=== PATIENT | male | born 1985 | race Caucasian/White ===

== ENCOUNTER → 2020-12-07 10:49 | Outpatient (CLI) | payer OTHER, SELFPAY ==
[2016-07-20 22:34] VITALS: BMI 33.2
[2020-12-07 12:43] LABS: Anion Gap 3 (5-15); BUN 16 mg/dL (7-18); BUN/Creat Ratio 17.7 RATIO (10-20); Calcium,Total 9.1 mg/dL (8.5-10.1); Chloride 106 mmol/L (98-107); Cholesterol 226 mg/dL (200); EST Glomerular Filtration Rate 101 mL/min (>60); Est Glom Filt Rate - Afr Amer 122 mL/min (>60); Glucose 92 mg/dL (74-106); High Density Lipoprotein 38 mg/dL; Sodium Level 139 mmol/L (136-145); Triglycerides 251 mg/dL; Very Low Density Lipoprotein 50 mg/dL (5-40)
== END ==
PROVIDERS: PCP Family Medicine; Referring Provider Family Medicine; Visit Provider Family Medicine
DX: Z00.00 Encounter for general adult medical examination without abnormal findings (principal)
CPT/HCPCS: 36415; 80048; 80061

== ENCOUNTER → 2020-12-27 10:43 | Outpatient (CLI) | payer OTHER, SELFPAY ==
--- NOTE | 2020-12-27 10:00 | VAS_PTH ---
PATIENT: HERBERT ESCAMILLA [facility] U#:[id number] AGE/SX: 39/M ROOM: RE12/27/[address]: Dr. Kadeem Vu MD : 1985 BED: DIS: SPEC #: [id number] RECD: 12/27/20 10:41 STATUS: DIONE REShivani #: [id number] JU: 12/27/20 10:[address]: Kadeem Vu DEPT: SURGICAL PATHOLOGY RECD BY: Fina Nassar ENTERED: 12/27/20 12:49 SP TYPE: VAS OTHR DR: Dr. Keny Calhoun MD Tissues: A - Vas deferens, NOS B - Vas deferens, NOS Procedures: Surgery Specimen Level II HEADER OPERATION: Bilateral partial vasectomy PRE-OP DIAGNOSIS: Sterilization TISSUE SUBMITTED: A - Left vas deferens, B - Right vas deferens MICROSCOPIC DIAGNOSIS A. Left vas deferens, partial vasectomy: Completely transected segment of vas deferens, no pathologic diagnosis. B. Right vas deferens, partial vasectomy: Completely transected segment of vas deferens, no pathologic diagnosis. JAXON:macario 12/28/2020 MICROSCOPIC DESCRIPTION Slides are reviewed. GROSS DESCRIPTION A - Received is one container designated left vas deferens. The specimen consists of a tubular segment of og soft tissue measuring 1 cm in length and 0.4 cm in diameter. The entire specimen is submitted in one cassette. It will be sectioned at the time of embedding. B - Received is one container designated right vas deferens. The specimen consists of a tubular segment of og soft tissue measuring 1.2 cm in length and 0.2 cm in diameter. The entire specimen is submitted in one cassette. It will be sectioned at the time of embedding. / JAXON:macario 12/27/20 TC:4 [facility]: [id number] x2
== END ==
PROVIDERS: PCP Family Medicine; Referring Provider Surgery; Visit Provider Surgery
DX: Z30.2 Encounter for sterilization (principal)
CPT/HCPCS: 88302

== ENCOUNTER → 2021-04-04 16:44 | Outpatient (CLI) | payer OTHER, SELFPAY ==
[2021-04-04 16:47] LABS: Lyme Ab Screen Interpretation REF LAB
[2021-04-04 17:49] LABS: Absolute Lymphocyte Count 2.63 X10^3/uL (0.83-4.51); Absolute Neutrophil Count 3.2 X10^3/uL (2.0-7.7); Basophil# 0.05 X10^3/uL; Basophil% 0.8 % (0-1); Eosinophil# 0.27 X10^3/uL; Eosinophils% 4.1 % (0-5); Hematocrit 48.7 % (40-54); Hemoglobin 16.1 g/dL (13.0-16.5); Lymphocyte # 2.63 X10^3/ul (0.83-4.51); Lymphocyte % 39.5 % (19-41); Mean Corp Hgb Conc 33.1 g/dL (32-36); Mean Corpuscular Hgb 29.7 pg (27.0-32.0); Mean Corpuscular Volume 89.9 fL (80-94); Mean Platelet Vol. 10.4 fl (6.2-12.0); Monocyte# 0.53 X10^3/uL; NRBC Flagged by Analyzer 0 % (0-5); Neutrophil # 3.15 X10^3/uL (2.7-7.7); Neutrophil % 47.1 % (47-70); Platelet Count 216 K/mm3 (150-450); RBC Distribution Width CV 11.7 % (11.6-14.6); RBC Distribution Width SD 38.3 fl (35.1-43.9); Red Blood Count 5.42 M/mm3 (4.6-6.2); White Blood Count 6.7 K/mm3 (4.4-11.0)
[2021-04-04 18:40] LABS: Anion Gap 6 (5-15); BUN 14 mg/dL (7-18); BUN/Creat Ratio 14.9 RATIO (10-20); Calcium,Total 8.9 mg/dL (8.5-10.1); Chloride 103 mmol/L (98-107); Creatinine, Serum 0.94 mg/dL (0.70-1.30); EST Glomerular Filtration Rate 96 mL/min (>60); Est Glom Filt Rate - Afr Amer 116 mL/min (>60); Glucose 103 mg/dL (74-106); Potassium 3.6 mmol/L (3.5-5.1); Sodium Level 136 mmol/L (136-145)
[2021-04-07 11:55] LABS: Lyme Scn Total Ab w/Rflx <0.91 ISR (0.00-0.90)
== END ==
PROVIDERS: PCP Family Medicine; Referring Provider Family Medicine; Visit Provider Family Medicine
DX: R53.83 Other fatigue (principal); W57.XXXA Bitten or stung by nonvenomous insect and other nonvenomous arthropods, initial encounter
CPT/HCPCS: 36415; 80048; 84403; 84443; 85025; 86618

== ENCOUNTER → 2021-04-13 13:33 | Outpatient (CLI) | payer OTHER, SELFPAY | PROVIDERS: PCP Family Medicine; Referring Provider Family Medicine; Visit Provider Family Medicine | DX: R79.89 Other specified abnormal findings of blood chemistry (principal) | CPT/HCPCS: 36415; 84403 ==

== ENCOUNTER → 2021-08-06 14:03 | Outpatient (CLI) | payer BC, SELFPAY ==
[2021-08-07 12:19] LABS: Semen Analysis Post Vas ABSENT
== END ==
PROVIDERS: PCP Family Medicine; Visit Provider Surgery
DX: Z30.2 Encounter for sterilization (principal)
CPT/HCPCS: 89321

== ENCOUNTER → 2021-09-20 16:28 | Outpatient (CLI) | payer BC, SELFPAY | PROVIDERS: PCP Family Medicine; Visit Provider Family Medicine | DX: Z20.828 Contact with and (suspected) exposure to other viral communicable diseases (principal) | CPT/HCPCS: 87635; U0003; U0005 ==

== ENCOUNTER 2021-10-05 11:23 | Outpatient (CLI) | payer BC, SELFPAY ==
[2021-10-05 15:26] LABS: Absolute Lymphocyte Count 2.33 X10^3/uL (0.83-4.51); Absolute Neutrophil Count 5.7 X10^3/uL (2.0-7.7); Basophil# 0.05 X10^3/uL; Basophil% 0.6 % (0-1); Eosinophil# 0.12 X10^3/uL; Eosinophils% 1.4 % (0-5); Hematocrit 48.9 % (40-54); Hemoglobin 16.2 g/dL (13.0-16.5); Lymphocyte # 2.33 X10^3/ul (0.83-4.51); Lymphocyte % 26.4 % (19-41); Mean Corp Hgb Conc 33.1 g/dL (32-36); Mean Corpuscular Hgb 29.6 pg (27.0-32.0); Mean Corpuscular Volume 89.2 fL (80-94); Mean Platelet Vol. 10.1 fl (6.2-12.0); Monocyte# 0.62 X10^3/uL; NRBC Flagged by Analyzer 0 % (0-5); Neutrophil # 5.68 X10^3/uL (2.7-7.7); Neutrophil % 64.4 % (47-70); Platelet Count 280 K/mm3 (150-450); RBC Distribution Width CV 11.9 % (11.6-14.6); RBC Distribution Width SD 38.4 fl (35.1-43.9); Red Blood Count 5.48 M/mm3 (4.6-6.2); White Blood Count 8.8 K/mm3 (4.4-11.0)
[2021-10-05 15:51] LABS: Anion Gap 6 (5-15); BUN 14 mg/dL (7-18); BUN/Creat Ratio 16.5 RATIO (10-20); Calcium,Total 9.7 mg/dL (8.5-10.1); Chloride 102 mmol/L (98-107); Creatinine, Serum 0.85 mg/dL (0.70-1.30); EST Glomerular Filtration Rate 107 mL/min (>60); Est Glom Filt Rate - Afr Amer 130 mL/min (>60); Glucose 93 mg/dL (74-106); Potassium 4.3 mmol/L (3.5-5.1); Sodium Level 137 mmol/L (136-145); Thyroid Stim Hormone (TSH) 1.31 uIU/mL (0.358-3.74)
== END 2021-10-05 23:59 | disposition short-term general hospital (02) ==
LOC: MTLAB 11:24
PROVIDERS: PCP Family Medicine; Referring Provider Family Medicine; Visit Provider Family Medicine
DX: R79.89 Other specified abnormal findings of blood chemistry (principal); J34.89 Other specified disorders of nose and nasal sinuses; R53.83 Other fatigue
CPT/HCPCS: 36415; 80048; 84403; 84443; 85025

== ENCOUNTER 2021-10-24 11:47 | Outpatient (CLI) | payer BC, SELFPAY ==
--- NOTE | 2021-10-24 11:50 | RAD_ITS ---
STUDY: X-RAY CHEST REASON FOR EXAM: Male, 36 years old. Persistent cough TECHNIQUE: PA and lateral views of the chest. COMPARISON: None. FINDINGS: The lungs are clear and expanded. There is no demonstrated pleural abnormality. Normal size heart. Normal mediastinum and yunier. Normal visualized pulmonary arteries. Normal visualized aortic arch and descending thoracic aorta. Normal visualized thoracic spine. Normal visualized ribs, clavicles, and shoulders. There is no demonstrated abnormality of the visualized soft tissue structures of the upper abdomen. RAD/Chest PA and Lateral IMPRESSION: Normal x-ray examination of the chest. Electronically Signed: Archie Morton MD at 16:26 EST ,
== END 2021-10-24 23:59 | disposition short-term general hospital (02) ==
LOC: MTRAD 11:49
PROVIDERS: PCP Family Medicine; Referring Provider Family Medicine; Visit Provider Family Medicine
DX: Z87.09 Personal history of other diseases of the respiratory system (principal)
CPT/HCPCS: 71046

== ENCOUNTER → 2022-02-12 | Outpatient (CLI) | payer BC, SELFPAY | END | disposition home or self-care (01) | LOC: MFPLAB 12:09 | PROVIDERS: PCP Family Medicine; Referring Provider Family Medicine; Visit Provider Family Medicine | DX: R79.89 Other specified abnormal findings of blood chemistry (principal) | CPT/HCPCS: 36415; 84403 ==

== ENCOUNTER → 2022-03-08 | Outpatient (CLI) | payer BC, SELFPAY ==
[2022-03-08 12:20] LABS: AST(SGOT) 30 U/L (15-37); Alanine Aminotransfer ALT/SGPT 44 U/L (16-61); Albumin, Serum 3.9 g/dL (3.2-5.0); Alkaline Phosphatase 72 U/L (45-117); Bilirubin, Direct 0.17 mg/dL (0.00-0.30); Cholesterol 211 mg/dL (200); Globulin 3.7 g/dL (2.2-4.2); High Density Lipoprotein 36 mg/dL; Protein, Total 7.6 g/dL (6.4-8.2); Triglycerides 234 mg/dL; Very Low Density Lipoprotein 47 mg/dL (5-40)
== END | disposition home or self-care (01) ==
LOC: MTLAB 10:51
PROVIDERS: PCP Family Medicine; Referring Provider Dermatology; Visit Provider Dermatology
DX: L70.0 Acne vulgaris (principal); Z79.899 Other long term (current) drug therapy
CPT/HCPCS: 36415; 80061; 80076

== ENCOUNTER → 2022-05-23 | Outpatient (CLI) | payer BC, SELFPAY ==
[2022-05-23 12:36] LABS: Thyroid Stim Hormone (TSH) 2.45 uIU/mL (0.358-3.74)
== END | disposition home or self-care (01) ==
LOC: MFPLAB 10:00
PROVIDERS: PCP Family Medicine; Visit Provider Family Medicine
DX: R79.89 Other specified abnormal findings of blood chemistry (principal); F41.9 Anxiety disorder, unspecified
CPT/HCPCS: 36415; 84403; 84443

== ENCOUNTER → 2022-12-23 | Outpatient (CLI) | payer BC, SELFPAY | END | disposition home or self-care (01) | LOC: MFPLAB 10:57 | PROVIDERS: PCP Family Medicine; Visit Provider Family Medicine | DX: R79.89 Other specified abnormal findings of blood chemistry (principal) | CPT/HCPCS: 36415; 84403 ==

== ENCOUNTER → 2023-07-09 | Outpatient (CLI) | payer BC, SELFPAY ==
[2023-07-09 17:38] LABS: Absolute Lymphocyte Count 2.26 X10^3/uL (0.83-4.51); Absolute Neutrophil Count 4.6 X10^3/uL (2.0-7.7); Basophil% 1.2 % (0-1); Eosinophil# 0.52 X10^3/uL; Eosinophils% 6.3 % (0-5); Hemoglobin 18.7 g/dL (13.0-16.5); Lymphocyte # 2.26 X10^3/ul (0.83-4.51); Lymphocyte % 27.5 % (19-41); Mean Corp Hgb Conc 32.4 g/dL (32-36); Mean Corpuscular Volume 95.7 fL (80-94); Mean Platelet Vol. 10.6 fl (6.2-12.0); Monocyte% 8.5 % (0-10); NRBC Flagged by Analyzer 0 % (0-5); Neutrophil # 4.58 X10^3/uL (2.7-7.7); Neutrophil % 55.9 % (47-70); Platelet Count 245 K/mm3 (150-450); RBC Distribution Width CV 11.9 % (11.6-14.6); RBC Distribution Width SD 41.9 fl (35.1-43.9); Red Blood Count 6.03 M/mm3 (4.6-6.2); White Blood Count 8.2 K/mm3 (4.4-11.0)
[2023-07-09 18:06] LABS: Hematocrit 57.7 % (40-54)
[2023-07-09 18:18] LABS: PSA,Total- Diagnostic 0.63 ng/mL (0.0-4.0)
[2023-07-11 10:47] LABS: Pathologist Review Reviewed
== END | disposition home or self-care (01) ==
LOC: MFPLAB 15:14
PROVIDERS: PCP Family Medicine; Visit Provider Family Medicine
DX: R79.89 Other specified abnormal findings of blood chemistry (principal)
CPT/HCPCS: 36415; 84153; 84403; 85025

== ENCOUNTER → 2023-08-11 | Outpatient (CLI) | payer BC, SELFPAY ==
[2023-08-11 15:24] LABS: Absolute Lymphocyte Count 2.75 X10^3/uL (0.83-4.51); Absolute Neutrophil Count 3.2 X10^3/uL (2.0-7.7); Basophil# 0.05 X10^3/uL; Basophil% 0.7 % (0-1); Eosinophil# 0.32 X10^3/uL; Eosinophils% 4.7 % (0-5); Hematocrit 54.5 % (40-54); Hemoglobin 18.2 g/dL (13.0-16.5); Lymphocyte # 2.75 X10^3/ul (0.83-4.51); Lymphocyte % 40.2 % (19-41); Mean Corp Hgb Conc 33.4 g/dL (32-36); Mean Corpuscular Hgb 31.5 pg (27.0-32.0); Mean Corpuscular Volume 94.3 fL (80-94); Mean Platelet Vol. 10.6 fl (6.2-12.0); Monocyte# 0.55 X10^3/uL; NRBC Flagged by Analyzer 0 % (0-5); Neutrophil # 3.15 X10^3/uL (2.7-7.7); Neutrophil % 46.1 % (47-70); Platelet Count 239 K/mm3 (150-450); RBC Distribution Width CV 11.4 % (11.6-14.6); RBC Distribution Width SD 39.3 fl (35.1-43.9); Red Blood Count 5.78 M/mm3 (4.6-6.2); White Blood Count 6.8 K/mm3 (4.4-11.0)
[2023-08-13 14:58] LABS: Pathologist Review Reviewed
== END | disposition home or self-care (01) ==
LOC: MFPLAB 11:38
PROVIDERS: PCP Family Medicine; Visit Provider Family Medicine
DX: R79.89 Other specified abnormal findings of blood chemistry (principal)
CPT/HCPCS: 36415; 85025

== ENCOUNTER → 2023-09-10 | Outpatient (CLI) | payer BC, SELFPAY ==
[2023-09-10 15:33] LABS: Absolute Lymphocyte Count 2.53 X10^3/uL (0.83-4.51); Absolute Neutrophil Count 3.4 X10^3/uL (2.0-7.7); Basophil# 0.04 X10^3/uL; Basophil% 0.6 % (0-1); Eosinophils% 4.5 % (0-5); Hematocrit 49.7 % (40-54); Hemoglobin 16.8 g/dL (13.0-16.5); Lymphocyte # 2.53 X10^3/ul (0.83-4.51); Lymphocyte % 37.8 % (19-41); Mean Corp Hgb Conc 33.8 g/dL (32-36); Mean Corpuscular Hgb 31.2 pg (27.0-32.0); Mean Corpuscular Volume 92.4 fL (80-94); Mean Platelet Vol. 10.5 fl (6.2-12.0); Monocyte# 0.41 X10^3/uL; Monocyte% 6.1 % (0-10); NRBC Flagged by Analyzer 0 % (0-5); Neutrophil # 3.39 X10^3/uL (2.7-7.7); Neutrophil % 50.6 % (47-70); Platelet Count 246 K/mm3 (150-450); RBC Distribution Width CV 11.7 % (11.6-14.6); RBC Distribution Width SD 39.6 fl (35.1-43.9); Red Blood Count 5.38 M/mm3 (4.6-6.2); White Blood Count 6.7 K/mm3 (4.4-11.0)
== END | disposition home or self-care (01) ==
LOC: MFPLAB 13:42
PROVIDERS: PCP Family Medicine; Visit Provider Family Medicine
DX: Z51.81 Encounter for therapeutic drug level monitoring (principal)
CPT/HCPCS: 36415; 85025

== ENCOUNTER → 2024-01-14 | Outpatient (CLI) | payer BC, SELFPAY ==
[2024-01-14 17:40] LABS: Absolute Neutrophil Count 2.9 X10^3/uL (2.0-7.7); Basophil# 0.04 X10^3/uL; Basophil% 0.7 % (0-1); Eosinophil# 0.18 X10^3/uL; Eosinophils% 3.1 % (0-5); Hemoglobin 16.4 g/dL (13.0-16.5); Lymphocyte % 40.7 % (19-41); Mean Corp Hgb Conc 34.2 g/dL (32-36); Mean Corpuscular Hgb 31.8 pg (27.0-32.0); Mean Corpuscular Volume 93.2 fL (80-94); Mean Platelet Vol. 10.4 fl (6.2-12.0); Monocyte# 0.32 X10^3/uL; Monocyte% 5.4 % (0-10); NRBC Flagged by Analyzer 0 % (0-5); Neutrophil # 2.93 X10^3/uL (2.7-7.7); Neutrophil % 49.8 % (47-70); Platelet Count 222 K/mm3 (150-450); RBC Distribution Width CV 11.4 % (11.6-14.6); RBC Distribution Width SD 39.2 fl (35.1-43.9); Red Blood Count 5.15 M/mm3 (4.6-6.2); White Blood Count 5.9 K/mm3 (4.4-11.0)
== END | disposition home or self-care (01) ==
LOC: MFPLAB 14:40
PROVIDERS: PCP Family Medicine; Visit Provider Family Medicine
DX: R79.89 Other specified abnormal findings of blood chemistry (principal)
CPT/HCPCS: 36415; 84403; 85025

== ENCOUNTER → 2024-07-19 | Outpatient (CLI) | payer BC, SELFPAY ==
[2024-07-19 18:18] LABS: Hematocrit 51.4 % (40-54); Hemoglobin 17.4 g/dL (13.0-16.5); Mean Corp Hgb Conc 33.9 g/dL (32-36); Mean Corpuscular Hgb 31.4 pg (27.0-32.0); Mean Corpuscular Volume 92.6 fL (80-94); Mean Platelet Vol. 10.6 fl (6.2-12.0); Platelet Count 221 K/mm3 (150-450); RBC Distribution Width CV 12.1 % (11.6-14.6); Red Blood Count 5.55 M/mm3 (4.6-6.2); White Blood Count 6.9 K/mm3 (4.4-11.0)
== END | disposition home or self-care (01) ==
LOC: MFPLAB 14:25
PROVIDERS: PCP Family Medicine; Referring Provider Family Medicine; Visit Provider Family Medicine
DX: R79.89 Other specified abnormal findings of blood chemistry (principal)
CPT/HCPCS: 36415; 84403; 85027

== ENCOUNTER → 2024-10-18 | Outpatient (CLI) | payer BC, SELFPAY ==
[2024-10-18 17:48] LABS: Absolute Lymphocyte Count 1.99 X10^3/uL (0.83-4.51); Absolute Neutrophil Count 4.1 X10^3/uL (2.0-7.7); Basophil# 0.03 X10^3/uL; Basophil% 0.4 % (0-1); Eosinophil# 0.13 X10^3/uL; Eosinophils% 1.9 % (0-5); Hematocrit 50.1 % (40-54); Hemoglobin 16.1 g/dL (13.0-16.5); Lymphocyte # 1.99 X10^3/ul (0.83-4.51); Lymphocyte % 29.6 % (19-41); Mean Corp Hgb Conc 32.1 g/dL (32-36); Mean Corpuscular Hgb 30.4 pg (27.0-32.0); Mean Corpuscular Volume 94.7 fL (80-94); Mean Platelet Vol. 10.6 fl (6.2-12.0); Monocyte% 7.4 % (0-10); NRBC Flagged by Analyzer 0 % (0-5); Neutrophil # 4.06 X10^3/uL (2.7-7.7); Neutrophil % 60.4 % (47-70); Platelet Count 232 K/mm3 (150-450); RBC Distribution Width CV 11.7 % (11.6-14.6); RBC Distribution Width SD 40.9 fl (35.1-43.9); Red Blood Count 5.29 M/mm3 (4.6-6.2); White Blood Count 6.7 K/mm3 (4.4-11.0)
== END | disposition home or self-care (01) ==
LOC: MFPLAB 14:13
PROVIDERS: PCP Family Medicine; Referring Provider Family Medicine; Visit Provider Family Medicine
DX: R79.89 Other specified abnormal findings of blood chemistry (principal)
CPT/HCPCS: 36415; 84403; 85025

== ENCOUNTER → 2025-02-22 | Outpatient (CLI) | payer BC, SELFPAY ==
[2025-02-22 12:21] LABS: Absolute Neutrophil Count 4.4 X10^3/uL (2.0-7.7); Basophil# 0.05 X10^3/uL; Basophil% 0.7 % (0-1); Eosinophils% 4.3 % (0-5); Hematocrit 50.5 % (40-54); Lymphocyte % 25.6 % (19-41); Mean Corp Hgb Conc 33.7 g/dL (32-36); Mean Corpuscular Hgb 31.3 pg (27.0-32.0); Mean Corpuscular Volume 92.8 fL (80-94); Mean Platelet Vol. 10.1 fl (6.2-12.0); Monocyte# 0.46 X10^3/uL; Monocyte% 6.6 % (0-10); NRBC Flagged by Analyzer 0 % (0-5); Neutrophil # 4.37 X10^3/uL (2.7-7.7); Neutrophil % 62.2 % (47-70); Platelet Count 212 K/mm3 (150-450); RBC Distribution Width CV 11.9 % (11.6-14.6); RBC Distribution Width SD 40.8 fl (35.1-43.9); Red Blood Count 5.44 M/mm3 (4.6-6.2)
[2025-02-22 13:00] LABS: Anion Gap 12 (5-15); BUN 12 mg/dL (4-19); BUN/Creat Ratio 13.4 RATIO (10-20); Calcium,Total 9.4 mg/dL (7.6-11.0); Carbon Dioxide 25.1 mmol/L (21.0-32.0); Chloride 100 mmol/L (98-108); Cholesterol 214 mg/dL (<=200); Creatinine, Serum 0.89 mg/dL (0.70-1.20); EST Glomerular Filtration Rate 110 (>60); Glucose 87 mg/dL (70-99); High Density Lipoprotein 46 mg/dL; Low Density Lipoprotein Calc. 137 mg/dL; Potassium 3.9 mmol/L (3.3-5.1); Sodium Level 137 mmol/L (133-145); Triglycerides 152 mg/dL; Very Low Density Lipoprotein 30 mg/dL (5-40); cholesterol:hdl ratio screen 4.62
== END | disposition home or self-care (01) ==
LOC: MFPLAB 11:23
PROVIDERS: PCP Family Medicine; Referring Provider Family Medicine; Visit Provider Family Medicine
DX: Z00.00 Encounter for general adult medical examination without abnormal findings (principal); E29.1 Testicular hypofunction
CPT/HCPCS: 36415; 80048; 80061; 84403; 85025

== ENCOUNTER → 2025-06-24 | Outpatient (CLI) | payer BC, SELFPAY ==
--- OUTSIDE RECORDS SUMMARY | 2025-06-24 10:04 | XMS RPT_ITS | CCD ---
Author Organization [facility] Care Team Providers Care Manual Arts Teacher Name Role Phone Unavailable Primary Care Provider Wendy Calhoun MD, Dr. Bustillo Primary Care Provider Lj MCCAULEY, Dr. Bustillo Attending Provider Lj MCCAULEY, Dr. Bustillo Referring Provider [phone] Keny Calhoun Primary Care Unavailable Keny Calhoun Attending Unavailable Lj, Keny Referring Unavailable Lj, Keny Attending Unavailable Lj, Keny Referring Unavailable Keny Calhoun Primary Care Unavailable Lj, Keny Attending Unavailable Lj, Keny Referring Unavailable Lj, Keny Primary Care Unavailable Allergies Allergy Classification Reported Allergen(s) Allergy Type Date of Onset Reaction(s) Facility (10 sources) Penicillins; Translations: [Penicillins] Allergy to substance 01-09-2021 [facility] Medications Current Medications Medication Drug Class(es) Dates Sig (Normalized) Sig (Original) allopurinol 100 mg oral tablet (9 sources) Xanthine Oxidase Inhibitor Start: 07-20-2016 take 1 tablet by mouth once daily at mealtime Allopurinol 100 MG tablet Active 100 mg PO DAILY WITH MEALS July 20, 2016 12:00am cetirizine hydrochloride 10 mg oral tablet (9 sources) Histamine-1 Receptor Antagonist Start: 07-20-2016 take 1 tablet by mouth at bedtime Cetirizine 10 MG tablet Active 10 mg PO AT BEDTIME July 20, 2016 12:00am multivitamin,tx-iron -minerals (8 sources) Start: 12-13-2020 take 1 tablet by mouth once daily multivitamin,tx-i chayo-minerals Active 1 TABLET PO DAILY December 13, 2020 3:02pm Start: 12-13-2020 take 1 tablet by park th once daily multivitamin,wk-jgcq-jcpiuvuo Active 1 T ABLET PO DAILY December 12, 2020 11:00pm Start: 12-13-2020 take 1 tablet by park th once daily multivitamin,fo-iqef-jhrmzreq Active 1 T ABLET PO DAILY December 13, 2020 12:00am Multivitamin,Au-Edhq-Bykgkos s (Complete Multivitamin) tablet (1 source) Start: 12-13-2020 Multivitamin,Uu-Eucs-Dzicnmw s (Complete Multivitamin) tablet Active 1 {tbl} PO DAILY December 13, 2020 12:00am Completed/Discontinued Medications Medication Drug Class(es) Dates Sig (Normalized) Sig (Original) acetaminophen 300 mg / codeine phosphate 15 mg oral tablet (9 sources) Opioid Agonist Start: 12-27-2020 End: 01-01-2021 Acetaminophen-Codei ne 300-15 mg tablet Discontinued 1 {tbl} PO EVERY 6 HOURS as needed for pain December 27, 2020 12:00am January 01, 2021 9:11am Start: 12-27-2020 End: 01-01-2021 take 1 tablet by mouth every six hours Acetaminophen-Codeine Discontinued 1 TABLET PO EVERY 6 HOURS December 27, 2020 12:00am January 01, 2021 9:11am LORazepam 2 mg oral tablet (9 sources) Benzodiazepine Start: 12-13-2020 End: 01-05-2021 Lorazepam (Ativan) 2 mg tablet Discontinued 2 mg PO As Directed as needed for sedation December 13, 2020 12:00am January 05, 2021 2:18pm Take 1 tablet by mouth 2 hrs before your procedure oxyCODONE hydrochloride 5 mg oral tablet (18 sources) Opioid Agonist Start: 01-01-2021 End: 01-05-2021 take 5-10 mg by mouth three times daily as needed for pain Oxycodone 5 mg tablet Discontinued 5 - 10 mg PO THREE TIMES A DAY as needed for pain January 01, 2021 January 05, 2021 2:26pm Problems Active Problems Problem Classification Problem Date Documented Da te Episodic/Chronic Nonspecific chest pain (9 sources) Chest pain; Translations: [Chest pain, unspecified] 07-20-2016 Episodic Past or Other Problems Problem Classification Problem Date Documented Da te Episodic/Chronic Other screening for suspected conditions (not mental disorders or infectious disease) (1 source) Other specified abnormal findings of blood chemistry; Translations: [Other specified abnormal findings of blood chemistry] Onset: 11-05-2024 Episodic Results Test Name Value Interpretation Reference Range Facility Absolute lymphocyte countOrd ered By: Keny Calhoun on 02-22-2025 Lymphocytes Auto (Unsp spec) [#/Vol] 1.80 10*3/uL 0.83-4.51 [facility] Absolute neutrophil countOrd ered By: Keny Calhoun on 02-22-2025 Neutrophils (Bld) [#/Vol] 4.4 10*3/uL 2.0-7.7 [facility] Anion gap in Serum or Plasma Ordered By: Keny Calhoun on 02-22-2025 Anion gap [Moles/Vol] 12 mmol/L 02-03 [facility] Automated lymphocyte count a s percentage of total leukocytesOrdered By: Keny Calhoun on 02-22-2025 Lymphocytes/100 WBC Auto (Unsp spec) 25.6 % [facility] BUN/creatinine ratioOrdered By: Keny Calhoun on 02-22-2025 Urea nitrogen/Creatinine [Mass ratio] 13.4 mg/mg - [facility] Basic Metabolic Profile (BMP )on 02-22-2025 BUN/CRE 13.4 RATIO Normal 07-11 [facility] Comment on above: Performed By: #### L 509.3001, L500.2500, L100.0100, L500.4100 #### [facility] [address] [place], [address] GAP 12 Normal 02-03 [facility] Comment on above: Performed By: #### L 509.3001, L500.2500, L100.0100, L500.4100 #### [facility] [address] [place], [address] Potassium [Moles/Vol] 3.9 mmol/L Normal 3.3-5.1 [facility] Comment on above: Performed By: #### L 509.3001, L500.2500, L100.0100, L500.4100 #### [facility] [address] [place], [address] Basophil percentageOrdered B y: Keny Calhoun on 02-22-2025 Basophils/100 WBC (Bld) 0.7 % 0-[address] [facility] CBC W/Diff, Automatedon Absolute Lymph 1.80 X10 3/uL Normal 0.83-4.51 [facility] Comment on above: Performed By: #### L 509.3001, L500.2500, L100.0100, L500.4100 #### [facility] [address] [place], [address] Absolute Neut 4.4 X10 3/uL Normal 2.0-7.7 [facility] Comment on above: Performed By: #### L 509.3001, L500.2500, L100.0100, L500.4100 #### [facility] [address] [place], [address] Basophils/100 WBC (Bld) 0.7 % Normal 0-[address] [facility] Comment on above: Performed By: #### L 509.3001, L500.2500, L100.0100, L500.4100 #### [facility] [address] [place], [address] Eosinophils/100 WBC (Bld) 4.3 % Normal 0-5 [facility] Comment on above: Performed By: #### L 509.3001, L500.2500, L100.0100, L500.4100 #### [facility] [address] [place], [address] Erythrocyte distribution width (RBC) [Ratio] 11.9 % Normal 11.6-14.6 [facility] Comment on above: Performed By: #### L 509.3001, L500.2500, L100.0100, L500.4100 #### [facility] [address] [place], [address] Hematocrit (Bld) [Volume fraction] 50.5 % Normal 40-54 [facility] Comment on above: Performed By: #### L 509.3001, L500.2500, L100.0100, L500.4100 #### [facility] [address] [place], [address] Hemoglobin (Bld) [Mass/Vol] 17.0 g/dL High 13.0-16.5 [facility] Comment on above: Performed By: #### L 509.3001, L500.2500, L100.0100, L500.4100 #### [facility] [address] [place], [address] IG% 0.600 Normal 0.0-0.9 [facility] Comment on above: Result Comment: IG% - Immature Granulocytes (promyelocytes, myelocytes and metamyelocytes) > 1% indicates that a LEFT SHIFT is Present. Performed By: #### L 509.3001, L500.2500, L100.0100, L500.4100 #### [facility] [address] [place], [address] Lymphocytes/100 WBC (Bld) 25.6 % Normal 19-41 [facility] Comment on above: Performed By: #### L 509.3001, L500.2500, L100.0100, L500.4100 #### [facility] [address] [place], [address] MCH (RBC) [Entitic mass] 31.3 pg Normal 27.0-32.0 [facility] Comment on above: Performed By: #### L 509.3001, L500.2500, L100.0100, L500.4100 #### [facility] [address] [place], [address] MCHC (RBC) [Mass/Vol] 33.7 g/dL Normal 32-36 [facility] Comment on above: Performed By: #### L 509.3001, L500.2500, L100.0100, L500.4100 #### [facility] [address] [place], [address] MCV (RBC) [Entitic vol] 92.8 fL Normal 80-[address] [facility] Comment on above: Performed By: #### L 509.3001, L500.2500, L100.0100, L500.4100 #### [facility] [address] [place], [address] Monocytes/100 WBC (Bld) 6.6 % Normal 0-[address] [facility] Comment on above: Performed By: #### L 509.3001, L500.2500, L100.0100, L500.4100 #### [facility] [address] [place], [address] Neutrophils/100 WBC (Bld) 62.2 % Normal 47-70 [facility] Comment on above: Performed By: #### L 509.3001, L500.2500, L100.0100, L500.4100 #### [facility] [address] [place], [address] Nucleated RBC (Bld) [#/Vol] 0 10*3/uL Normal 0-5 [facility] Comment on above: Performed By: #### L 509.3001, L500.2500, L100.0100, L500.4100 #### [facility] [address] [place], [address] Platelet mean volume (Bld) [Entitic vol] 10.1 fL Normal 6.2-12.0 [facility] Comment on above: Performed By: #### L 509.3001, L500.2500, L100.0100, L500.4100 #### [facility] [address] [place], [address] Platelets (Bld) [#/Vol] 212 10*3/uL Normal 150-450 [facility] Comment on above: Performed By: #### L 509.3001, L500.2500, L100.0100, L500.4100 #### [facility] [address] [place], [address] RBC (Bld) [#/Vol] 5.44 10*6/uL Normal 4.6-6.2 [facility] Comment on above: Performed By: #### L 509.3001, L500.2500, L100.0100, L500.4100 #### [facility] [address] [place], [address] RDW SD 40.8 fl Normal 35.1-43.9 [facility] Comment on above: Performed By: #### L 509.3001, L500.2500, L100.0100, L500.4100 #### [facility] [address] [place], [address] WBC (Bld) [#/Vol] 7.0 10*3/uL Normal 4.4-11.0 [facility] Comment on above: Performed By: #### L 509.3001, L500.2500, L100.0100, L500.4100 #### [facility] [address] [place], [address] Calculated very low density lipoprotein (VLDL) cholesterol measurementOrdered By: Keny Calhoun on 02-22-2025 Calculated very low density lipoprotein (VLDL) cholesterol measurement 30 mg/dL 5-40 [facility] Carbon dioxide, total [Moles /volume] in Central venous bloodOrdered By: Keny Calhoun on 02-22-2025 CO2 [Moles/Vol] 25.1 mmol/L Normal 21.0-32.0 [facility] Comment on above: Performed By: #### L 509.3001, L500.2500, L100.0100, L500.4100 #### [facility] [address] [place], [address] Chloride assayOrdered By: Carl Calhoun on 02-22-2025 Chloride [Moles/Vol] 100 mmol/L Normal 98-108 [facility] Comment on above: Performed By: #### L 509.3001, L500.2500, L100.0100, L500.4100 #### [facility] [address] [place], [place], [address] Eosinophil percentageOrdered By: Keny Calhoun on 02-22-2025 Eosinophils/100 WBC (Bld) 4.3 % 0-5 [facility] Erythrocyte distribution wid th ratioOrdered By: Keny Calhoun on 02-22-2025 Erythrocyte distribution width (RBC) [Ratio] 11.9 % 11.6-14.6 [facility] Erythrocyte distribution wid th standard deviationOrdered By: Keny Calhoun on 02-22-2025 Erythrocyte distribution width (RBC) [Ratio] 40.8 fl 35.1-43.9 [facility] Glomerular filtration rate ( GFR) estimation/1.73 sq m using serum, plasma, or whole bOrdered By: Keny Calhoun on 02-22-2025 GFR/1.73 sq M.predicted among non-blacks MDRD (S/P/Bld) [Vol rate/Area] 110 mL/min/{1.73_m2} Normal >60 [facility] Comment on above: mL/min/1.73m2 CKD-EP I Creatinine Equation (2020) Result Comment: mL/m in/1.73m2 CKD-EPI Creatinine Equation (2020) Performed By: #### L 509.3001, L500.2500, L100.0100, L500.4100 #### [facility] [address] [place], [place], [id number] Hematocrit Auto (Bld) [Volum e fraction]Ordered By: Keny Calhoun on 02-22-2025 Hematocrit (Bld) [Volume fraction] 50.5 % 40-54 [facility] Hemoglobin measurementOrdere d By: Keny Calhoun on 02-22-2025 Hemoglobin (Bld) [Mass/Vol] 17.0 g/dL High 13.0-16.5 [facility] Immature granulocytes/100 WB C Auto (Bld)Ordered By: Keny Calhoun on 02-22-2025 Immature granulocytes/100 WBC (Bld) 0.600 % 0.0-0.9 [facility] Comment on above: IG% - Immature Granu locytes (promyelocytes, myelocytes and metamyelocytes) > 1% indicates that a LEFT SHIFT is Present. L509.3001Ordered By: Keny dejesus on 02-22-2025 Testosterone [Mass/Vol] 320.00 ng/dL Normal 300-890 [facility] Comment on above: Performed By: #### L 509.3001, L500.2500, L100.0100, L500.4100 #### [facility] [address] [place], [address] LDL calc ser/plasOrdered By: Keny Calhoun on 02-22-2025 Cholesterol in LDL [Mass/Vol] 137 mg/dL Normal [facility] Comment on above: Lfzlxnxwub=897-504 m g/dL & Higher Pcow=990 mg/dL or greater Result Comment: Bord fqnova=382-414 mg/dL Higher Iifb=868 mg/dL or greater Performed By: #### L 509.3001, L500.2500, L100.0100, L500.4100 #### [facility] [address] [place], [address] Lipid Profileon 02-22-2025 CHOL:HDL 4.62 Normal [facility] Comment on above: Performed By: #### L 509.3001, L500.2500, L100.0100, L500.4100 #### [facility] [address] [place], [address] Cholesterol in VLDL [Mass/Vol] 30 mg/dL Normal 5-40 [facility] Comment on above: Performed By: #### L 509.3001, L500.2500, L100.0100, L500.4100 #### [facility] [address] [place], [address] MCV (mean corpuscular volume ) determinationOrdered By: Keny Calhoun on 02-22-2025 MCV (RBC) [Entitic vol] 92.8 fL 80-[address] [facility] Mean corpuscular hemoglobin (MCH) determinationOrdered By: Keny Calhoun on 02-22-2025 MCH (RBC) [Entitic mass] 31.3 pg 27.0-32.0 [facility] Mean corpuscular hemoglobin concentration (MCHC) determinationOrdered By: Keny Calhoun on 02-22-2025 MCHC (RBC) [Mass/Vol] 33.7 g/dL 32-36 [facility] Mean platelet volume determi nationOrdered By: Keny Calhoun on 02-22-2025 Platelet mean volume (Bld) [Entitic vol] 10.1 fL 6.2-12.0 [facility] Monocyte percentageOrdered B y: Keny Calhoun on 02-22-2025 Monocytes/100 WBC (Bld) 6.6 % 0-[address] [facility] Neutrophil percentageOrdered By: Keny Calhoun on 02-22-2025 Neutrophils/100 WBC (Bld) 62.2 % 47-70 [facility] Nucleated red blood cell per centageOrdered By: Keny Calhoun on 02-22-2025 Nucleated RBC/100 WBC (Bld) [Ratio] 0 % 0-5 [facility] Platelet countOrdered By: Carl Calhoun on 02-22-2025 Platelets (Bld) [#/Vol] 212 10*3/uL 150-450 [facility] Potassium measurement (mass/ volume)Ordered By: Keny Calhoun on 02-22-2025 Potassium (Unsp spec) [Mass/Vol] 3.9 mmol/L 3.3-5.1 [facility] RBC Auto (Bld) [#/Vol]Ordere d By: Keny Calhoun on 02-22-2025 RBC (Bld) [#/Vol] 5.44 10*6/uL 4.6-6.2 [facility] Screening total cholesterol/ high density lipoprotein (HDL) cholesterol ratioOrdered By: Keny Calhoun on 02-22-2025 Cholesterol.total/Cholest cindi in HDL [Mass ratio] 4.62 {ratio} [facility] Serum creatinine measurement (mass/volume)Ordered By: Keny Calhoun on 02-22-2025 Creatinine [Mass/Vol] 0.89 mg/dL Normal 0.70-1.20 [facility] Comment on above: Performed By: #### L 509.3001, L500.2500, L100.0100, L500.4100 #### [facility] [address] [place], [address] Serum glucose measurement (m ass/volume)Ordered By: Keny Calhoun on 02-22-2025 Glucose [Mass/Vol] 87 mg/dL Normal 70-99 [facility] Comment on above: Performed By: #### L 509.3001, L500.2500, L100.0100, L500.4100 #### [facility] [address] [place], [address] Serum or plasma calcium margarita urement (mass/volume)Ordered By: Keny Calhoun on 02-22-2025 Calcium [Mass/Vol] 9.4 mg/dL Normal 7.6-11.0 [facility] Comment on above: Performed By: #### L 509.3001, L500.2500, L100.0100, L500.4100 #### [facility] [address] [place], [address] Serum or plasma cholesterol in HDL measurement (mass/volume)Ordered By: Keny Calhoun on 02-22-2025 Cholesterol in HDL [Mass/Vol] 46 mg/dL Normal [facility] Comment on above: National Cholesterol Education Program (NCEP) guidelines:<40 mg/dL: Low HDL-cholesterol (major risk factor for CHD)>= 60 mg/dL: High HDL-cholesterol (negative risk factor for CHD)HDL-cholesterol is affected by a number of factors, e.g. smoking, exercise, hormones, sex and age. Result Comment: [place] on[place] Cholesterol Education Program (NCEP) guidelines: <40 mg/dL: Low HDL-cholesterol (major risk factor for CHD) >= 60 mg/dL: High HDL-cholesterol (negative risk factor for CHD) HDL-cholesterol is affected by a number of factors, e.g. smoking, exercise, hormones, sex and age. Performed By: #### L 509.3001, L500.2500, L100.0100, L500.4100 #### [facility] [address] [place], [address] Serum or plasma cholesterol measurement (mass/volume)Ordered By: Keny Calhoun on 02-22-2025 Cholesterol [Mass/Vol] 214 mg/dL High <=200 [facility] Comment on above: Cholesterol level, D esirable <200 mg/dLBorderline high cholesterol 200-239 mg/dLHigh cholesterol >=240 mg/dLRecommendations of the NCEP Adult Treatment Panel for the following risk-cutoff thresholds for the [place] population. Result Comment: Chol esterol level, Desirable <200 mg/dL Borderline high cholesterol 200-239 mg/dL High cholesterol >=240 mg/dL Recommendations of the NCEP Adult Treatment Panel for the following risk-cutoff thresholds for the [place] population. Performed By: #### L 509.3001, L500.2500, L100.0100, L500.4100 #### [facility] [address] [place], [address] Serum or plasma urea nitroge n measurement (mass/volume)Ordered By: Keny Calhoun on 02-22-2025 Urea nitrogen [Mass/Vol] 12 mg/dL Normal 4-19 [facility] Comment on above: Performed By: #### L 509.3001, L500.2500, L100.0100, L500.4100 #### [facility] [address] [place], [address] Sodium levelOrdered By: Keny Calhoun on 02-22-2025 Sodium [Moles/Vol] 137 mmol/L Normal 133-145 [facility] Comment on above: Performed By: #### L 509.3001, L500.2500, L100.0100, L500.4100 #### [facility] [address] [place], [address] Triglycerides measurementOrd ered By: Keny Calhoun on 02-22-2025 Triglyceride [Mass/Vol] 152 mg/dL Normal [facility] Comment on above: The drugs N-Acetylcy steine and Metamizole may falsely depress this assay. Normal range: <150 mg/dLBorderline High: 150-199 mg/dLHigh: 200-499 mg/dLVery High: >500 mg/dL Result Comment: The drugs N-Acetylcysteine and Metamizole may falsely depress this assay. Normal range: <150 mg/dL Borderline High: 150-199 mg/dL High: 200-499 mg/dL Very High: >500 mg/dL Performed By: #### L 509.3001, L500.2500, L100.0100, L500.4100 #### [facility] [address] [place], [address] White blood cell (WBC) count Ordered By: Keny Calhoun on 02-22-2025 WBC (Bld) [#/Vol] 7.0 10*3/uL 4.4-11.0 [facility] CBC W/Diff, Automatedon 09-23 Absolute Lymph 1.99 X10 3/uL Normal 0.83-4.51 [facility] Comment on above: Performed By: #### L 509.3000, L100.0100 #### [facility] [address] [facility] [place], [address] Absolute Neut 4.1 X10 3/uL Normal 2.0-7.7 [facility] Comment on above: Performed By: #### L 509.3000, L100.0100 #### [facility] [address] [place], [address] Basophils/100 WBC (Bld) 0.4 % Normal 0-[address] [facility] Comment on above: Performed By: #### L 509.3000, L100.0100 #### [facility] [address] [place], [address] Eosinophils/100 WBC (Bld) 1.9 % Normal 0-5 [facility] Comment on above: Performed By: #### L 509.3000, L100.0100 #### [facility] [address] [place], [address] Erythrocyte distribution width (RBC) [Ratio] 11.7 % Normal 11.6-14.6 [facility] Comment on above: Performed By: #### L 509.3000, L100.0100 #### [facility] [address] [place], [address] Hematocrit (Bld) [Volume fraction] 50.1 % Normal 40-54 [facility] Comment on above: Performed By: #### L 509.3000, L100.0100 #### [facility] [address] [place], [address] Hemoglobin (Bld) [Mass/Vol] 16.1 g/dL Normal 13.0-16.5 [facility] Comment on above: Performed By: #### L 509.3000, L100.0100 #### [facility] [address] [place], [address] IG% 0.300 Normal 0.0-0.9 [facility] Comment on above: Result Comment: IG% - Immature Granulocytes (promyelocytes, myelocytes and metamyelocytes) > 1% indicates that a LEFT SHIFT is Present. Performed By: #### L 509.3000, L100.0100 #### [facility] [address] [place], [address] Lymphocytes/100 WBC (Bld) 29.6 % Normal 19-41 [facility] Comment on above: Performed By: #### L 509.3000, L100.0100 #### [facility] [address] [place], [address] MCH (RBC) [Entitic mass] 30.4 pg Normal 27.0-32.0 [facility] Comment on above: Performed By: #### L 509.3000, L100.0100 #### [facility] [address] [place], [address] MCHC (RBC) [Mass/Vol] 32.1 g/dL Normal 32-36 [facility] Comment on above: Performed By: #### L 509.3000, L100.0100 #### [facility] [address] [place], [address] MCV (RBC) [Entitic vol] 94.7 fL High 80-[address] [facility] Comment on above: Performed By: #### L 509.3000, L100.0100 #### [facility] [address] [place], [address] Monocytes/100 WBC (Bld) 7.4 % Normal 0-10 [facility] Comment on above: Performed By: #### L 509.3000, L100.0100 #### [facility] [address] [place], [address] Neutrophils/100 WBC (Bld) 60.4 % Normal 47-70 [facility] Comment on above: Performed By: #### L 509.3000, L100.0100 #### [facility] [address] [place], [address] Nucleated RBC (Bld) [#/Vol] 0 10*3/uL Normal 0-5 [facility] Comment on above: Performed By: #### L 509.3000, L100.0100 #### [facility] [address] [place], [address] Platelet mean volume (Bld) [Entitic vol] 10.6 fL Normal 6.2-12.0 [facility] Comment on above: Performed By: #### L 509.3000, L100.0100 #### [facility] [address] [place] [place], [address] Platelets (Bld) [#/Vol] 232 10*3/uL Normal 150-450 [facility] Comment on above: Performed By: #### L 509.3000, L100.0100 #### [facility] [address] [place], [address] RBC (Bld) [#/Vol] 5.29 10*6/uL Normal 4.6-6.2 [facility] Comment on above: Performed By: #### L 509.3000, L100.0100 #### [facility] [address] [place], [address] RDW SD 40.9 fl Normal 35.1-43.9 [facility] Comment on above: Performed By: #### L 509.3000, L100.0100 #### [facility] [address] [place], [address] WBC (Bld) [#/Vol] 6.7 10*3/uL Normal 4.4-11.0 [facility] Comment on above: Performed By: #### L 509.3000, L100.0100 #### [facility] [address] [place], [address] Testosterone, Serum Totalon 10-18-2024 Testosterone [Mass/Vol] 345.19 ng/dL Normal [facility] Comment on above: Result Comment: CENT RAL 90% REFERENCE RANGES MALE AGE <50 197.44 - 669.58 ng/dL MALE AGE > or = 50 187.72 - 684.19 ng/dL FEMALE AGE <50 8.38 - 35.01 ng/dL FEMALE AGE > or = 50 <7.00 - 35.92 ng/dL Effective as of 04/17/21 Performed By: #### L 509.3000, L100.0100 #### [facility] [address] [place], [address] CBC-Complete Blood Cnt No Di ffon 07-19-2024 Erythrocyte distribution width (RBC) [Ratio] 12.1 % Normal 11.6-14.6 [facility] Comment on above: Performed By: #### L 100.0500, L509.3000 #### [facility] [address] [place], [address] Hematocrit (Bld) [Volume fraction] 51.4 % Normal 40-54 [facility] Comment on above: Performed By: #### L 100.0500, L509.3000 #### [facility] [address] [place], [address] Hemoglobin (Bld) [Mass/Vol] 17.4 g/dL High 13.0-16.5 [facility] Comment on above: Performed By: #### L 100.0500, L509.3000 #### [facility] [address] [place], [address] MCH (RBC) [Entitic mass] 31.4 pg Normal 27.0-32.0 [facility] Comment on above: Performed By: #### L 100.0500, L509.3000 #### [facility] [address] [place], [address] MCHC (RBC) [Mass/Vol] 33.9 g/dL Normal 32-36 [facility] Comment on above: Performed By: #### L 100.0500, L509.3000 #### [facility] [address] [place], [address] MCV (RBC) [Entitic vol] 92.6 fL Normal 80-[address] [facility] Comment on above: Performed By: #### L 100.0500, L509.3000 #### [facility] [address] [place], [address] Platelet mean volume (Bld) [Entitic vol] 10.6 fL Normal 6.2-12.0 [facility] Comment on above: Performed By: #### L 100.0500, L509.3000 #### [facility] [address] [place], [address] Platelets (Bld) [#/Vol] 221 10*3/uL Normal 150-450 [facility] Comment on above: Performed By: #### L 100.0500, L509.3000 #### [facility] [address] [place], [address] RBC (Bld) [#/Vol] 5.55 10*6/uL Normal 4.6-6.2 [facility] Comment on above: Performed By: #### L 100.0500, L509.3000 #### [facility] [address] [place], [address] RDW SD 42.0 fl Normal 35.1-43.9 [facility] Comment on above: Performed By: #### L 100.0500, L509.3000 #### [facility] [address] [place], [address] WBC (Bld) [#/Vol] 6.9 10*3/uL Normal 4.4-11.0 [facility] Comment on above: Performed By: #### L 100.0500, L509.3000 #### [facility] [address] [place], [address] Testosterone, Serum Totalon 07-19-2024 Testosterone [Mass/Vol] 396.76 ng/dL Normal [facility] Comment on above: Result Comment: CENT RAL 90% REFERENCE RANGES MALE AGE <50 197.44 - 669.58 ng/dL MALE AGE > or = 50 187.72 - 684.19 ng/dL FEMALE AGE <50 8.38 - 35.01 ng/dL FEMALE AGE > or = 50 <7.00 - 35.92 ng/dL Effective as of 04/17/21 Performed By: #### L 100.0500, L509.3000 #### [facility] [address] [place], [address] Absolute lymphocyte countOrd ered By: Keny Calhoun on 01-14-2024 Lymphocytes Auto (Unsp spec) [#/Vol] 2.40 10*3/uL 0.83-4.51 [facility] Automated lymphocyte count a s percentage of total leukocytesOrdered By: Keny Calhoun on 01-14-2024 Lymphocytes/100 WBC Auto (Unsp spec) 40.7 % 19-41 [facility] Basophil percentageOrdered B y: Keny Calhoun on 01-14-2024 Basophils/100 WBC (Bld) 0.7 % 0-[address] [facility] Eosinophils/100 WBC (Bld) 3.1 % 0-5 [facility] Hemoglobin (Bld) [Mass/Vol] 16.4 g/dL 13.0-16.5 [facility] Monocytes/100 WBC (Bld) 5.4 % 0-[address] [facility] Neutrophils (Bld) [#/Vol] 2.9 10*3/uL 2.0-7.7 [facility] Neutrophils/100 WBC (Bld) 49.8 % 47-70 [facility] Testosterone [Mass/Vol] 86.78 ng/dL [facility] Comment on above: CENTRAL 90% REFERENC E RANGES MALE AGE <50 197.44 - 669.58 ng/dL MALE AGE > or = 50 187.72 - 684.19 ng/dL FEMALE AGE <50 8.38 - 35.01 ng/dL FEMALE AGE > or = 50 <7.00 - 35.92 ng/dL Effective as of 04/17/21 WBC (Bld) [#/Vol] 5.9 10*3/uL 4.4-11.0 [facility] Determination of erythrocyte mean corpuscular volume (MCV)Ordered By: Keny Calhoun on 01-14-2024 MCV (RBC) [Entitic vol] 93.2 fL 80-[address] [facility] Erythrocyte distribution wid th ratioOrdered By: Keny Calhoun on 01-14-2024 Erythrocyte distribution width (RBC) [Ratio] 11.4 % 11.6-14.6 [facility] Erythrocyte distribution wid th standard deviationOrdered By: Keny Calhoun on 01-14-2024 Erythrocyte distribution width (RBC) [Entitic vol] 39.2 fL 35.1-43.9 [facility] Hematocrit Auto (Bld) [Volum e fraction]Ordered By: Keny Calhoun on 01-14-2024 Hematocrit (Bld) [Volume fraction] 48.0 % 40-54 [facility] Immature granulocytes/100 WB C Auto (Bld)Ordered By: Keny Calhoun on 01-14-2024 Immature granulocytes/100 WBC (Bld) 0.300 % 0.0-0.9 [facility] Comment on above: IG% - Immature Granu locytes (promyelocytes, myelocytes and metamyelocytes) > 1% indicates that a LEFT SHIFT is Present. Laboratory - Hematology and Cell countsOrdered By: Keny Calhoun on 01-14-2024 MCH (RBC) [Entitic mass] 31.8 pg 27.0-32.0 [facility] MCHC (RBC) [Mass/Vol] 34.2 g/dL 32-36 [facility] Nucleated RBC/100 WBC (Bld) [Ratio] 0 % 0-5 [facility] Platelet mean volume (Bld) [Entitic vol] 10.4 fL 6.2-12.0 [facility] Platelets (Bld) [#/Vol] 222 10*3/uL 150-450 [facility] RBC Auto (Bld) [#/Vol]Ordere d By: Keny Calhoun on 01-14-2024 RBC (Bld) [#/Vol] 5.15 10*6/uL 4.6-6.2 [facility] Absolute lymphocyte countOrd ered By: Keny Calhoun on 09-10-2023 Lymphocytes Auto (Unsp spec) [#/Vol] 2.53 10*3/uL 0.83-4.51 [facility] Basophil percentageOrdered B y: Keny Calhoun on 09-10-2023 Basophils/100 WBC (Bld) 0.6 % 0-[address] [facility] Eosinophils/100 WBC (Bld) 4.5 % 0-5 [facility] Neutrophils (Bld) [#/Vol] 3.4 10*3/uL 2.0-7.7 [facility] Neutrophils/100 WBC (Bld) 50.6 % 47-70 [facility] WBC (Bld) [#/Vol] 6.7 10*3/uL 4.4-11.0 [facility] Blood erythrocytes count (nu mber/volume)Ordered By: Keny Calhoun on 09-10-2023 RBC (Bld) [#/Vol] 5.38 10*6/uL 4.6-6.2 [facility] Blood hemoglobin measurement (mass/volume)Ordered By: Keny Calhoun on 09-10-2023 Hemoglobin (Bld) [Mass/Vol] 16.8 g/dL 13.0-16.5 [facility] Blood lymphocytes/100 leukoc ytesOrdered By: Keny Calhoun on 09-10-2023 Lymphocytes/100 WBC (Bld) 37.8 % 19-41 [facility] Blood monocytes/100 leukocyt esOrdered By: Keny Calhoun on 09-10-2023 Monocytes/100 WBC (Bld) 6.1 % 0-[address] [facility] Blood platelet mean volumeOr dered By: Keny Calhoun on 09-10-2023 Platelet mean volume (Bld) [Entitic vol] 10.5 fL 6.2-12.0 [facility] Determination of erythrocyte mean corpuscular volume (MCV)Ordered By: Keny Calhoun on 09-10-2023 MCV (RBC) [Entitic vol] 92.4 fL 80-[address] [facility] Hematocrit Auto (Bld) [Volum e fraction]Ordered By: Keny Calhoun on 09-10-2023 Hematocrit (Bld) [Volume fraction] 49.7 % 40-54 [facility] - Hematology and Cell countsOrdered By: Keny Calhoun on 09-10-2023 Erythrocyte distribution width (RBC) [Entitic vol] 39.6 fL 35.1-43.9 [facility] Erythrocyte distribution width (RBC) [Ratio] 11.7 % 11.6-14.6 [facility] Immature granulocytes/100 WBC (Bld) 0.400 % 0.0-0.9 [facility] Comment on above: IG% - Immature Granu locytes (promyelocytes, myelocytes and metamyelocytes) > 1% indicates that a LEFT SHIFT is Present. MCH (RBC) [Entitic mass] 31.2 pg 27.0-32.0 [facility] Nucleated RBC/100 WBC (Bld) [Ratio] 0 % 0-5 [facility] MCHC Auto (RBC) [Mass/Vol]Or dered By: Keny Calhoun on 09-10-2023 MCHC (RBC) [Mass/Vol] 33.8 g/dL 32-36 [facility] Platelets bldOrdered By: Kristy Calhoun on 09-10-2023 Platelets (Bld) [#/Vol] 246 10*3/uL 150-450 [facility] Absolute lymphocyte countOrd ered By: Keny Calhoun on 08-11-2023 Lymphocytes Auto (Unsp spec) [#/Vol] 2.75 10*3/uL 0.83-4.51 [facility] Basophil percentageOrdered B y: Keny Calhoun on 08-11-2023 Basophils/100 WBC (Bld) 0.7 % 0-[address] [facility] Eosinophils/100 WBC (Bld) 4.7 % 0-5 [facility] Neutrophils (Bld) [#/Vol] 3.2 10*3/uL 2.0-7.7 [facility] Neutrophils/100 WBC (Bld) 46.1 % 47-70 [facility] WBC (Bld) [#/Vol] 6.8 10*3/uL 4.4-11.0 [facility] Blood erythrocytes count (nu mber/volume)Ordered By: Keny Calhoun on 08-11-2023 RBC (Bld) [#/Vol] 5.78 10*6/uL 4.6-6.2 [facility] Blood hemoglobin measurement (mass/volume)Ordered By: Keny Calhoun on 08-11-2023 Hemoglobin (Bld) [Mass/Vol] 18.2 g/dL 13.0-16.5 [facility] Blood lymphocytes/100 leukoc ytesOrdered By: Keny Calhoun on 08-11-2023 Lymphocytes/100 WBC (Bld) 40.2 % 19-41 [facility] Blood monocytes/100 leukocyt esOrdered By: Keny Calhoun on 08-11-2023 Monocytes/100 WBC (Bld) 8.0 % 0-[address] [facility] Blood platelet mean volumeOr dered By: Keny Calhoun on 08-11-2023 Platelet mean volume (Bld) [Entitic vol] 10.6 fL 6.2-12.0 [facility] Determination of erythrocyte mean corpuscular volume (MCV)Ordered By: Keny Calhoun on 08-11-2023 MCV (RBC) [Entitic vol] 94.3 fL 80-[address] [facility] Hematocrit Auto (Bld) [Volum e fraction]Ordered By: Keny Calhoun on 08-11-2023 Hematocrit (Bld) [Volume fraction] 54.5 % 40-54 [facility] - Hematology and Cell countsOrdered By: Keny Calhoun on 08-11-2023 Erythrocyte distribution width (RBC) [Entitic vol] 39.3 fL 35.1-43.9 [facility] Erythrocyte distribution width (RBC) [Ratio] 11.4 % 11.6-14.6 [facility] Immature granulocytes/100 WBC (Bld) 0.300 % 0.0-0.9 [facility] Comment on above: IG% - Immature Granu locytes (promyelocytes, myelocytes and metamyelocytes) > 1% indicates that a LEFT SHIFT is Present. MCH (RBC) [Entitic mass] 31.5 pg 27.0-32.0 [facility] Nucleated RBC/100 WBC (Bld) [Ratio] 0 % 0-5 [facility] MCHC Auto (RBC) [Mass/Vol]Or dered By: Keny Calhoun on 08-11-2023 MCHC (RBC) [Mass/Vol] 33.4 g/dL 32-36 [facility] Platelets bldOrdered By: Kristy Calhoun on 08-11-2023 Platelets (Bld) [#/Vol] 239 10*3/uL 150-450 [facility] Review by pathologistOrdered By: Keny Calhoun on 08-11-2023 Pathologist review Riley (Unsp spec) [Interp] Reviewed [facility] Absolute lymphocyte countOrd ered By: Keny Calhoun on 07-09-2023 Lymphocytes Auto (Unsp spec) [#/Vol] 2.26 10*3/uL 0.83-4.51 [facility] Basophil percentageOrdered B y: Keny Calhoun on 07-09-2023 Basophils/100 WBC (Bld) 1.2 % 0-[address] [facility] Eosinophils/100 WBC (Bld) 6.3 % 0-5 [facility] Neutrophils (Bld) [#/Vol] 4.6 10*3/uL 2.0-7.7 [facility] Neutrophils/100 WBC (Bld) 55.9 % 47-70 [facility] Testosterone [Mass/Vol] 559.37 ng/dL [facility] Comment on above: CENTRAL 90% REFERENC E RANGES MALE AGE <50 197.44 - 669.58 ng/dL MALE AGE > or = 50 187.72 - 684.19 ng/dL FEMALE AGE <50 8.38 - 35.01 ng/dL FEMALE AGE > or = 50 <7.00 - 35.92 ng/dL Effective as of 04/17/21 WBC (Bld) [#/Vol] 8.2 10*3/uL 4.4-11.0 [facility] Blood erythrocytes count (nu mber/volume)Ordered By: Keny Calhoun on 07-09-2023 RBC (Bld) [#/Vol] 6.03 10*6/uL 4.6-6.2 [facility] Blood hemoglobin measurement (mass/volume)Ordered By: Keny Calhoun on 07-09-2023 Hemoglobin (Bld) [Mass/Vol] 18.7 g/dL 13.0-16.5 [facility] Blood lymphocytes/100 leukoc ytesOrdered By: Keny Calhoun on 07-09-2023 Lymphocytes/100 WBC (Bld) 27.5 % 19-41 [facility] Blood monocytes/100 leukocyt esOrdered By: Keny aClhoun on 07-09-2023 Monocytes/100 WBC (Bld) 8.5 % 0-[address] [facility] Blood platelet mean volumeOr dered By: Keny Calhoun on 07-09-2023 Platelet mean volume (Bld) [Entitic vol] 10.6 fL 6.2-12.0 [facility] Determination of erythrocyte mean corpuscular volume (MCV)Ordered By: Keny Calhoun on 07-09-2023 MCV (RBC) [Entitic vol] 95.7 fL 80-[address] [facility] Hematocrit Auto (Bld) [Volum e fraction]Ordered By: Keny Calhoun on 07-09-2023 Hematocrit (Bld) [Volume fraction] 57.7 % 40-54 [facility] - Hematology and Cell countsOrdered By: Keny Calhoun on 07-09-2023 Erythrocyte distribution width (RBC) [Entitic vol] 41.9 fL 35.1-43.9 [facility] Erythrocyte distribution width (RBC) [Ratio] 11.9 % 11.6-14.6 [facility] Immature granulocytes/100 WBC (Bld) 0.600 % 0.0-0.9 [facility] Comment on above: IG% - Immature Granu locytes (promyelocytes, myelocytes and metamyelocytes) > 1% indicates that a LEFT SHIFT is Present. MCH (RBC) [Entitic mass] 31.0 pg 27.0-32.0 [facility] Nucleated RBC/100 WBC (Bld) [Ratio] 0 % 0-5 [facility] MCHC Auto (RBC) [Mass/Vol]Or dered By: Keny Calhoun on 07-09-2023 MCHC (RBC) [Mass/Vol] 32.4 g/dL 32-36 [facility] No Panel InformationOrdered By: Keny Calhoun on 07-09-2023 Prostate Specific Antigen Total 0.63 ng/mL 0.0-4.0 [facility] Comment on above: This test was perfor med using the TPSA assay method for theECKey chemistry system. Values obtained with differentassay methods cannot be used interchangably.When changing PSA assays in the course of monitoring apatient, additional sequential testing should be carriedout to confirm baseline values. Platelets bldOrdered By: Kristy Calhoun on 07-09-2023 Platelets (Bld) [#/Vol] 245 10*3/uL 150-450 [facility] Review by pathologistOrdered By: Keny Calhoun on 07-09-2023 Pathologist review Riley (Unsp spec) [Interp] Reviewed [facility] Comment on above: Previous reported re sult: Lucinda douglas Edited by: RGOTERESO on 07/11/23:1047PolycythemiaClinical correlation necessary.Mandeep Pinto M.D. 07/11/23 AMENDED REPORT 07/11/23 1047 PATH REV previously reported as: Lucinda douglas Basophil percentageOrdered B y: Dr. Calhoun on 12-23-2022 Testosterone [Mass/Vol] 346.36 ng/dL [facility] Comment on above: CENTRAL 90% REFERENC E RANGES MALE AGE <50 197.44 - 669.58 ng/dL MALE AGE > or = 50 187.72 - 684.19 ng/dL FEMALE AGE <50 8.38 - 35.01 ng/dL FEMALE AGE > or = 50 <7.00 - 35.92 ng/dL Effective as of 04/17/21 Basophil percentageon 2021 Testosterone [Mass/Vol] 383.98 ng/dL [facility] Work Phone: Comment on above: CENTRAL 90% REFERENC E RANGES MALE AGE <50 197.44 - 669.58 ng/dL MALE AGE > or = 50 187.72 - 684.19 ng/dL FEMALE AGE <50 8.38 - 35.01 ng/dL FEMALE AGE > or = 50 <7.00 - 35.92 ng/dL Effective as of 04/17/21 No Panel Informationon 05-23 Thyroid Stimulating Hormone (TSH) 2.45 uIU/mL 0.358-3.74 [facility] Work Phone: Basophil percentageon 2021 Bilirubin [Mass/Vol] 0.50 mg/dL 0.20-1.00 [facility] Work Phone: Comment on above: For patients on eltr ombopag therapy, use of Dimension [place]ley TBIL is not recommended. Cholesterol [Mass/Vol] 211 mg/dL <200 [facility] Work Phone: Comment on above: <200 mg/dL Desirable 200-240 mg/dL Borderline >240 mg/dL High Risk Protein [Mass/Vol] 7.6 g/dL 6.4-8.2 [facility] Work Phone: Triglyceride [Mass/Vol] 234 mg/dL <[address] [facility] Work Phone: Comment on above: The drugs N-Acetylcy steine and Metamizole may falsely depress this assay.Serum Triglycerides Reference Interval Normal <150 mg/dL Borderline high 150 - 199 mg/dL High 200 - 499 mg/dL Very High > or = 500 mg/dL Direct bilirubinon Bilirubin.direct [Mass/Vol] 0.17 mg/dL 0.00-0.30 [facility] Work Phone: Laboratory - Chemistry and C hemistry - challengeon 03-08-2022 ALP [Catalytic activity/Vol] 72 U/L 45-117 [facility] Work Phone: ALT [Catalytic activity/Vol] 44 U/L 16-61 [facility] Work Phone: Globulin (S) [Mass/Vol] 3.7 g/dL 2.2-4.[address] [facility] Work Phone: Serum or plasma albumin margarita urement (mass/volume)on 03-08-2022 Albumin [Mass/Vol] 3.9 g/dL 3.2-5.0 [facility] Work Phone: Serum or plasma cholesterol in HDL measurement (mass/volume)on 03-08-2022 Cholesterol in HDL [Mass/Vol] 36 mg/dL >40 [facility] Work Phone: Comment on above: The drugs N-Acetylcy steine and Metamizole may falsely depress this assay. Reference Range HDL <40 mg/dL Low HDL Cholesterol HDL >or= 60 mg/dL High HDL Cholesterol Serum or plasma cholesterol in VLDL measurement (mass/volume)on 03-08-2022 Cholesterol in VLDL [Mass/Vol] 47 mg/dL 5-40 [facility] Work Phone: Serum or plasma low density lipoprotein (LDL) cholesterol measurement (mass/volume)on 03-08-2022 Cholesterol in LDL [Mass/Vol] 128 mg/dL 0-130 [facility] Work Phone: Thin prep Papanicolaou smear with manual screeningon 03-08-2022 Thin prep Papanicolaou smear with manual screening 30 U/L 15-37 [facility] Work Phone: Comment on above: Slight Hemolysis, Re sult may be falsely increased. Basophil percentageon 2021 Testosterone [Mass/Vol] 462.36 ng/dL [facility] Work Phone: Comment on above: CENTRAL 90% REFERENC E RANGES MALE AGE <50 197.44 - 669.58 ng/dL MALE AGE > or = 50 187.72 - 684.19 ng/dL FEMALE AGE <50 8.38 - 35.01 ng/dL FEMALE AGE > or = 50 <7.00 - 35.92 ng/dL Effective as of 04/17/21 Otheron 08-09-2008 CONVERTED CLINICAL HISTORY OPERATIVE PROCEDURE: Uvulopalatopharyngo plasty; tonsillectomy, adenoidectomy; septoplasty, bilateral inferior submucous turbinate resection CLINICAL INFORMATION: Obstructive sleep apnea; inferior turbinate hypertrophy, septal deviation [facility] CONVERTED ELECTRONIC SIGNATURE NBA RAMIREZ M.D., PATHOLOGIST (Electronic signature on file) Final Signed Out: 08/09/2008 16:29 [facility] CONVERTED FINAL DIAGNOSIS FINAL DIAGNOSI S: TONSILS AND UVULA, EXCISION - TWO TONSILS WITH REACTIVE LYMPHOID HYPERPLASIA AND FOCAL ACUTE INFLAMMATION. UVULA AND SOFT PALATE TISSUE WITH MINOR SALIVARY GLANDS AND EDEMATOUS CHANGES. SPECIMEN: TONSIL(S) [facility] CONVERTED GROSS DESCRIPTION GROSS DESCRIPTION: Tonsils Received in a container labeled tonsils and UPP. Received are two congested, edematous, lobulated red-og tonsils measuring 2.5 x 2 x 2 cm. On cut section the tissue is lobulated, og-pink with focal areas of hemorrhage. Also within the container is a uvula with soft palate tissue measuring 2 x 1.5 x 1 cm. Sample from each tonsil submitted in cassettes 1 and 2; sample of uvula and soft palate tissue submitted in cassette 3. SMS:EDS:hlm MICROSCOPIC DESCRIPTION: Slides reviewed [facility] CONVERTED ORDERING PROVIDER Ordering Provider: RICKY AGUIRRE [facility] Encounters Encounter Date Encounter Type Care Provider Facility Start: 02-26-2025 Encounter for genera l adult medical examination without abnormal findings Keny Calhoun [facility] Start: 02-22-2025 End: 02-22-[address] Keny Calhoun MD Work Phone: [facility] Work Phone: Start: 02-22-2025 End: 02-22-[address] Keny Calhoun MD [facility] Start: 02-22-2025 End: 02-[facility] Start: 10-18-2024 End: 10-18-[facility] Start: 07-19-2024 End: 07-19-20[facility] Start: 01-14-2024 End: 01-14-2024 ambulatory [facility] Work Phone: Start: 01-14-2024 End: 01-14-2024 Patient encounter procedure [facility] Start: 09-10-2023 End: 09-10-2023 ambulatory [facility] Work Phone: Start: 09-10-2023 End: 09-10-2023 Patient encounter procedure [facility] Start: 08-11-2023 End: 08-11-2023 ambulatory [facility] Work Phone: Start: 08-11-2023 End: 08-11-2023 Patient encounter procedure [facility] Start: 07-09-2023 End: 07-09-2023 ambulatory [facility] Work Phone: Start: 07-09-2023 End: 07-09-2023 Patient encounter procedure [facility] Start: 12-23-2022 End: 12-23-2022 ambulatory [facility] Work Phone: Start: 12-23-2022 End: 12-23-2022 Patient encounter procedure [facility] Start: 05-23-2022 End: 05-23-2022 ambulatory [facility] Work Phone: Start: 05-23-2022 End: 05-23-2022 Patient encounter procedure [facility] Start: 03-08-2022 End: 03-08-2022 Patient encounter procedure [facility] Start: 02-12-2022 End: 02-12-2022 Patient encounter procedure [facility] Start: 10-24-2021 End: 10-24-2021 Patient encounter procedure [facility], [place] Start: 08-08-2008 End: 08-08-2008 Patient encounter procedure Ricky Amanda Timothy Work Phone: [facility] Start: 08-08-2008 Results Only Ricky ladd Work Phone: [facility] Procedures Date Procedure Procedure Detail Performing Clinician Start: 10-24-2021 Plain chest X-ray Start: 08-08-2008 CONVERTED SURGICAL PATHOLOGY Ricky Aguirre Work Phone: Payers Date Payer Category Payer Self-pay [id number] 2024 Unknown [id number] 2008 Unknown [id number] Unknown [id number] Unknown [id number] Unknown [id number] Social History Date Type Detail [facility] Sex Assigned At Not on file [facility] Start: 01-09-2021 End: 01-09-2021 Tobacco smoking status [facility] Unknown if ever smoked [facility] Start: 07-20-2016 Occasional [facility] Start: 07-20-2016 None [facility] Start: 1985 Sex Assigned At Male [facility] Start: 01-09-2021 [facility] Evaluation note Note Date & Type Note Facility Evaluation note No assessment information availa ble [facility] Work Phone: Reason for referral (narrative) Note Date & Type Note Facility Reason for referral (narrative) No reason for referral information available [facility] Work Phone: Chief Complaint and Reason for Visit Chief Complaint PERISTENT COUGH Chief Complaint SKIN Advance Directives No Advanced Directives Records Found Advance Directive Response Recorded Date/ Time Advance Directives No July 20, 2016 10:34pm Living Will No July 20 10:34pm Power of Mortgage Manager No July 20, 2016 10:34pm Advance Directive Response Recorded Date/ Time Advance Directives No July 20, 2016 9:34pm Living Will No July 20 9:34pm Power of Mortgage Manager No July 20, 2016 9:34pm Advance Directive Response Recorded Date/ Time Advance Directives No July 20, 2016 10:34pm Summary Purpose Family History No Family History Records Found Additional Source Comments Source Comments (unrecognize d section and content) In the event this informatio n is protected by the Federal Confidentiality of Alcohol and Drug Abuse Patient Records regulations: The Federal rules restrict any use of the information to criminally investigate or prosecute any alcohol or drug abuse patient.[facility] Goals (unrecognized section and content) Goals may be documented in a n alternate sectionGoals may be documented in an alternate sectionGoals may be documented in an alternate sectionGoals may be documented in an alternate sectionGoals may be documented in an alternate sectionGoals may be documented in an alternate sectionGoals may be documented in an alternate sectionGoals may be documented in an alternate sectionGoals may be documented in an alternate section Care Teams (unrecognized sec tion and content) Team Status: Active Member Role Status Dates Dr. Keny Calhoun MD Family Provider Active Dr. Keny Calhoun MD Primary Care Provider Active Team Status: Inactive Member Role Status Dates Dr. Keny Calhoun MD Primary Care Provider, Attending Provider Active Team Status: Inactive Member Role Status Dates Dr. Keny Calhoun MD Primary Care Provider Active Start: February 22, 2025 End: February 22, 2025 Dr. Keny Calhoun MD Attending Provider Active Start: February 22, 2025 End: February 22, 2025 Dr. Keny Calhoun MD Referring Provider Active Start: February 22, 2025 End: February 22, 2025 (unrecognized sect ion and content) No Status Records Found INFORMATION SOURCE (unrecogn ized section and content) DATE CREATED AUTHOR 02/27/2025 [facility] FOR RECORDS PERTAINING TO PATIENTS WHO ARE OR HAVE BEEN ENROLLED IN A CHEMICAL DEPENDENCY/SUBSTANCEABUSE PROGRAM, SOME INFORMATION MAY BE OMITTED. This clinical summary was aggregated from multiple sources. Caution should be exercised in using it in the provision of clinical care. This summary normalizes information from multiple sources, and as a consequence, information in this document may materially change the coding, format and clinical context of patient data. In addition, data may be omitted in some cases. CLINICAL DECISIONS SHOULD BE BASED ON THE PRIMARY CLINICAL RECORDS. [employer] provides no warranty or guarantee of the accuracy or completeness of information in this document.
--- OUTSIDE RECORDS SUMMARY | 2025-06-24 10:04 | XMS RPT_ITS | CCD ---
Author Organization [facility] Care Team Providers Care Nightclub Manager Name Role Phone Unavailable Primary Care Provider Wendy Calhoun MD, Dr. Bustillo Primary Care Provider [phone] Lj MCCAULEY, Dr. Bustillo Attending Provider Lj MCCAULEY, Dr. Bustillo Referring Provider Keny Calhoun Primary Care Unavailable Keny Calhoun Attending Unavailable Lj, Keny Referring Unavailable Lj, Keny Attending Unavailable Lj, Keny Referring Unavailable Keny Calhoun Primary Care Unavailable Lj, Keny Attending Unavailable Lj, Keny Referring Unavailable Lj, Keny Primary Care Unavailable Allergies Allergy Classification Reported Allergen(s) Allergy Type Date of Onset Reaction(s) Facility (10 sources) Penicillins; Translations: [Penicillins] Allergy to substance 01-09-2021 [facility] Medications Current Medications Medication Drug Class(es) Dates [...] 1 tablet by park th once daily multivitamin,ta-fwmd-snlcghjq Active 1 T ABLET PO DAILY December 12, 2020 11:00pm Start: 12-13-2020 take 1 tablet by park th once daily multivitamin,xh-cvjx-tarqrdsk Active 1 T ABLET PO DAILY December 13, 2020 12:00am Multivitamin,Mq-Gxny-Hmyavfl s (Complete Multivitamin) tablet (1 source) Start: 12-13-2020 Multivitamin,Xu-Qhjp-Rtqyotd s (Complete Multivitamin) tablet Active 1 {tbl} [...] Auto (Unsp spec) [#/Vol] 1.80 10*3/uL 0.83-4.51 [facility] Absolute neutrophil countOrd ered By: Keny Calhonu on 02-22-2025 Neutrophils (Bld) [#/Vol] 4.4 10*3/uL 2.0-7.7 [facility] Anion gap in Serum or Plasma Ordered By: Keny Calhoun on 02-22-2025 Anion gap [Moles/Vol] 12 mmol/L 02-03 [facility] Automated lymphocyte count a s percentage of total leukocytesOrdered By: Keny Calhoun on 02-22-2025 Lymphocytes/100 WBC Auto (Unsp spec) 25.6 % [facility] BUN/creatinine ratioOrdered By: Keny Calhoun on 02-22-2025 Urea nitrogen/Creatinine [Mass ratio] 13.4 mg/mg - [facility] Basic Metabolic Profile (BMP )on 02-22-2025 BUN/CRE 13.4 RATIO Normal 07-11 [facility] Comment on above: Performed By: #### L 509.3001, L500.2500, L100.0100, L500.4100 #### [facility] [address] [place], [address] GAP 12 Normal 02-03 [facility] Comment on above: Performed By: #### L 509.3001, L500.2500, L100.0100, L500.4100 #### [facility] [address] [place], [address] Potassium [Moles/Vol] 3.9 mmol/L Normal 3.3-5.1 [facility] Comment on above: Performed By: #### L 509.3001, L500.2500, L100.0100, L500.4100 #### [facility] [address] [place], [address] Basophil percentageOrdered B y: Keny Calhoun on 02-22-2025 Basophils/100 WBC (Bld) 0.7 % 0-1 [facility] CBC W/Diff, Automatedon Absolute Lymph 1.80 X10 3/uL Normal 0.83-4.51 [facility] Comment on above: Performed By: #### L 509.3001, L500.2500, L100.0100, L500.4100 #### [facility] [address] [place], [address] Absolute Neut 4.4 X10 3/uL Normal 2.0-7.7 [facility] Comment on above: Performed By: #### L 509.3001, L500.2500, L100.0100, L500.4100 #### [facility] [address] [place], [address] Basophils/100 WBC (Bld) 0.7 % Normal 0-1 [facility] Comment on above: Performed By: #### L 509.3001, L500.2500, L100.0100, L500.4100 #### [facility] [address] [place], [address] Eosinophils/100 WBC (Bld) 4.3 % Normal 0-5 [facility] Comment on above: Performed By: #### L 509.3001, L500.2500, L100.0100, L500.4100 #### [facility] [address] [place], [address] Erythrocyte distribution width (RBC) [Ratio] 11.9 % Normal 11.6-14.6 [facility] Comment on above: Performed By: #### L 509.3001, L500.2500, L100.0100, L500.4100 #### [facility] [address] [place], [address] Hematocrit (Bld) [Volume fraction] 50.5 % Normal 40-54 [facility] Comment on above: Performed By: #### L 509.3001, L500.2500, L100.0100, L500.4100 #### [facility] [address] [place], [address] Hemoglobin (Bld) [Mass/Vol] 17.0 g/dL High 13.0-16.5 [facility] Comment on above: Performed By: #### L 509.3001, L500.2500, L100.0100, L500.4100 #### [facility] [address] [place], [address] IG% 0.600 Normal 0.0-0.9 [facility] Comment on above: Result Comment: IG% - Immature Granulocytes (promyelocytes, myelocytes and metamyelocytes) > 1% indicates that a LEFT SHIFT is Present. Performed By: #### L 509.3001, L500.2500, L100.0100, L500.4100 #### [facility] [address] [place], [address] Lymphocytes/100 WBC (Bld) 25.6 % Normal 19-41 [facility] Comment on above: Performed By: #### L 509.3001, L500.2500, L100.0100, L500.4100 #### [facility] [address] [place], [address] MCH (RBC) [Entitic mass] 31.3 pg Normal 27.0-32.0 [facility] Comment on above: Performed By: #### L 509.3001, L500.2500, L100.0100, L500.4100 #### [facility] [address] [place], [address] MCHC (RBC) [Mass/Vol] 33.7 g/dL Normal 32-36 [facility] Comment on above: Performed By: #### L 509.3001, L500.2500, L100.0100, L500.4100 #### [facility] [address] [place], [address] MCV (RBC) [Entitic vol] 92.8 fL Normal 80-94 [facility] Comment on above: Performed By: #### L 509.3001, L500.2500, L100.0100, L500.4100 #### [facility] [address] [place], [address] Monocytes/100 WBC (Bld) 6.6 % Normal 0-10 [facility] Comment on above: Performed By: #### L 509.3001, L500.2500, L100.0100, L500.4100 #### [facility] [address] [place], [address] Neutrophils/100 WBC (Bld) 62.2 % Normal 47-70 [facility] Comment on above: Performed By: #### L 509.3001, L500.2500, L100.0100, L500.4100 #### [facility] [address] [place], [address] Nucleated RBC (Bld) [#/Vol] 0 10*3/uL Normal 0-5 [facility] Comment on above: Performed By: #### L 509.3001, L500.2500, L100.0100, L500.4100 #### [facility] [address] [place], [address] Platelet mean volume (Bld) [Entitic vol] 10.1 fL Normal 6.2-12.0 [facility] Comment on above: Performed By: #### L 509.3001, L500.2500, L100.0100, L500.4100 #### [facility] [address] [place], [address] Platelets (Bld) [#/Vol] 212 10*3/uL Normal 150-450 [facility] Comment on above: Performed By: #### L 509.3001, L500.2500, L100.0100, L500.4100 #### [facility] [address] [place], [address] RBC (Bld) [#/Vol] 5.44 10*6/uL Normal 4.6-6.2 [facility] Comment on above: Performed By: #### L 509.3001, L500.2500, L100.0100, L500.4100 #### [facility] [address] [place], [address] RDW SD 40.8 fl Normal 35.1-43.9 [facility] Comment on above: Performed By: #### L 509.3001, L500.2500, L100.0100, L500.4100 #### [facility] [address] [place], [address] WBC (Bld) [#/Vol] 7.0 10*3/uL Normal 4.4-11.0 [facility] Comment on above: Performed By: #### L 509.3001, L500.2500, L100.0100, L500.4100 #### [facility] [address] [place], [address] Calculated very low density lipoprotein (VLDL) cholesterol measurementOrdered By: Keny Calhoun on 02-22-2025 Calculated very low density lipoprotein (VLDL) cholesterol measurement 30 mg/dL 5-40 [facility] Carbon dioxide, total [Moles /volume] in Central venous bloodOrdered By: Keny Calhoun on 02-22-2025 CO2 [Moles/Vol] 25.1 mmol/L Normal 21.0-32.0 [facility] Comment on above: Performed By: #### L 509.3001, L500.2500, L100.0100, L500.4100 #### [facility] [address] [place], [address] Chloride assayOrdered By: Carl Calhoun on 02-22-2025 Chloride [Moles/Vol] 100 mmol/L Normal 98-108 [facility] Comment on above: Performed By: #### L 509.3001, L500.2500, L100.0100, L500.4100 #### [facility] [address] [place], [place], [address] Eosinophil percentageOrdered By: Keny Calhoun on 02-22-2025 Eosinophils/100 WBC (Bld) 4.3 % 0-5 [facility] Erythrocyte distribution wid th ratioOrdered By: Keny Calhoun on 02-22-2025 Erythrocyte distribution width (RBC) [Ratio] 11.9 % 11.6-14.6 [facility] Erythrocyte distribution wid th standard deviationOrdered By: Keny Calhoun on 02-22-2025 Erythrocyte distribution width (RBC) [Ratio] 40.8 fl 35.1-43.9 [facility] Glomerular filtration rate ( GFR) estimation/1.73 sq m using serum, plasma, or whole bOrdered By: Keny Calhoun on 02-22-2025 GFR/1.73 sq M.predicted among non-blacks MDRD (S/P/Bld) [Vol rate/Area] 110 mL/min/{1.73_m2} Normal >60 [facility] Comment on above: mL/min/1.73m2 CKD-EP I Creatinine Equation (2020) Result Comment: mL/m in/1.73m2 CKD-EPI Creatinine Equation (2020) Performed By: #### L 509.3001, L500.2500, L100.0100, L500.4100 #### [facility] [address] [place], [place], [address] Hematocrit Auto (Bld) [Volum e fraction]Ordered By: Keny Calhoun on 02-22-2025 Hematocrit (Bld) [Volume fraction] 50.5 % 40-54 [facility] Hemoglobin measurementOrdere d By: Keny Calhoun on 02-22-2025 Hemoglobin (Bld) [Mass/Vol] 17.0 g/dL High 13.0-16.5 [facility] Immature granulocytes/100 WB C Auto (Bld)Ordered By: Keny Calhoun on 02-22-2025 Immature granulocytes/100 WBC (Bld) 0.600 % 0.0-0.9 [facility] Comment on above: IG% - Immature Granu locytes (promyelocytes, myelocytes and metamyelocytes) > 1% indicates that a LEFT SHIFT is Present. L509.3001Ordered By: Keny dejesus on 02-22-2025 Testosterone [Mass/Vol] 320.00 ng/dL Normal 300-890 [facility] Comment on above: Performed By: #### L 509.3001, L500.2500, L100.0100, L500.4100 #### [facility] [address] [place], [address] LDL calc ser/plasOrdered By: Keny Calhoun on 02-22-2025 Cholesterol in LDL [Mass/Vol] 137 mg/dL Normal [facility] Comment on above: Nwhqwkwoeo=785-014 m g/dL & Higher Qjer=683 mg/dL or greater Result Comment: Bord fgexfp=150-461 mg/dL Higher Gifd=654 mg/dL or greater Performed By: #### L 509.3001, L500.2500, L100.0100, L500.4100 #### [facility] [address] [place], [address] Lipid Profileon 02-22-2025 CHOL:HDL 4.62 Normal [facility] Comment on above: Performed By: #### L 509.3001, L500.2500, L100.0100, L500.4100 #### [facility] [address] [place], [address] Cholesterol in VLDL [Mass/Vol] 30 mg/dL Normal 5-40 [facility] Comment on above: Performed By: #### L 509.3001, L500.2500, L100.0100, L500.4100 #### [facility] [address] [place], [address] MCV (mean corpuscular volume ) determinationOrdered By: Keny Calhoun on 02-22-2025 MCV (RBC) [Entitic vol] 92.8 fL 80-94 [facility] Mean corpuscular hemoglobin (MCH) determinationOrdered By: Keny Calhoun on 02-22-2025 MCH (RBC) [Entitic mass] 31.3 pg 27.0-32.0 [facility] Mean corpuscular hemoglobin concentration (MCHC) determinationOrdered By: Keny Calhoun on 02-22-2025 MCHC (RBC) [Mass/Vol] 33.7 g/dL 32-36 [facility] Mean platelet volume determi nationOrdered By: Keny Calhoun on 02-22-2025 Platelet mean volume (Bld) [Entitic vol] 10.1 fL 6.2-12.0 [facility] Monocyte percentageOrdered B y: Keny Calhoun on 02-22-2025 Monocytes/100 WBC (Bld) 6.6 % 0-10 [facility] Neutrophil percentageOrdered By: Keny Calhoun on 02-22-2025 Neutrophils/100 WBC (Bld) 62.2 % 47-70 [facility] Nucleated red blood cell per centageOrdered By: Keny Calhoun on 02-22-2025 Nucleated RBC/100 WBC (Bld) [Ratio] 0 % 0-5 [facility] Platelet countOrdered By: Carl Calhoun on 02-22-2025 Platelets (Bld) [#/Vol] 212 10*3/uL 150-450 [facility] Potassium measurement (mass/ volume)Ordered By: Keny Calhoun on 02-22-2025 Potassium (Unsp spec) [Mass/Vol] 3.9 mmol/L 3.3-5.1 [facility] RBC Auto (Bld) [#/Vol]Ordere d By: Keny Calhoun on 02-22-2025 RBC (Bld) [#/Vol] 5.44 10*6/uL 4.6-6.2 [facility] Screening total cholesterol/ high density lipoprotein (HDL) cholesterol ratioOrdered By: Keny Calhoun on 02-22-2025 Cholesterol.total/Cholest cindi in HDL [Mass ratio] 4.62 {ratio} [facility] Serum creatinine measurement (mass/volume)Ordered By: Keny Calhoun on 02-22-2025 Creatinine [Mass/Vol] 0.89 mg/dL Normal 0.70-1.20 [facility] Comment on above: Performed By: #### L 509.3001, L500.2500, L100.0100, L500.4100 #### [facility] [address] [place], [address] Serum glucose measurement (m ass/volume)Ordered By: Keny Calhoun on 02-22-2025 Glucose [Mass/Vol] 87 mg/dL Normal 70-99 [facility] Comment on above: Performed By: #### L 509.3001, L500.2500, L100.0100, L500.4100 #### [facility] [address] [place], [address] Serum or plasma calcium margarita urement (mass/volume)Ordered By: Keny Calhoun on 02-22-2025 Calcium [Mass/Vol] 9.4 mg/dL Normal 7.6-11.0 [facility] Comment on above: Performed By: #### L 509.3001, L500.2500, L100.0100, L500.4100 #### [facility] [address] [place], [address] Serum or plasma cholesterol in HDL measurement (mass/volume)Ordered By: Keny Calhoun on 02-22-2025 Cholesterol in HDL [Mass/Vol] 46 mg/dL Normal [facility] Comment on above: National Cholesterol Education Program [...] #### L 509.3001, L500.2500, L100.0100, L500.4100 #### [facility] [address] [place], [address] Serum or plasma cholesterol measurement (mass/volume)Ordered By: Keny Calhoun on 02-22-2025 Cholesterol [Mass/Vol] 214 mg/dL High <=200 [facility] Comment on above: Cholesterol level, D esirable <200 mg/dLBorderline high cholesterol 200-239 mg/dLHigh cholesterol >=240 mg/dLRecommendations of the NCEP Adult Treatment Panel for the following risk-cutoff thresholds for the [place] population. Result Comment: Chol esterol level, Desirable <200 mg/dL Borderline high cholesterol 200-239 mg/dL High cholesterol >=240 mg/dL Recommendations of the NCEP Adult Treatment Panel for the following risk-cutoff thresholds for the [place] population. Performed By: #### L 509.3001, L500.2500, L100.0100, L500.4100 #### [facility] [address] [place], [address] Serum or plasma urea nitroge n measurement (mass/volume)Ordered By: Keny Calhoun on 02-22-2025 Urea nitrogen [Mass/Vol] 12 mg/dL Normal 4-19 [facility] Comment on above: Performed By: #### L 509.3001, L500.2500, L100.0100, L500.4100 #### [facility] [address] [place], [address] Sodium levelOrdered By: Keny Calhoun on 02-22-2025 Sodium [Moles/Vol] 137 mmol/L Normal 133-145 [facility] Comment on above: Performed By: #### L 509.3001, L500.2500, L100.0100, L500.4100 #### [facility] [address] [place], [address] Triglycerides measurementOrd ered By: Keny Calhoun on 02-22-2025 Triglyceride [Mass/Vol] 152 mg/dL Normal [facility] Comment on above: The drugs N-Acetylcy steine and Metamizole may falsely depress this assay. Normal range: <150 mg/dLBorderline High: 150-199 mg/dLHigh: 200-499 mg/dLVery High: >500 mg/dL Result Comment: The drugs N-Acetylcysteine and Metamizole may falsely depress this assay. Normal range: <150 mg/dL Borderline High: 150-199 mg/dL High: 200-499 mg/dL Very High: >500 mg/dL Performed By: #### L 509.3001, L500.2500, L100.0100, L500.4100 #### [facility] [address] [place], [address] White blood cell (WBC) count Ordered By: Keny Calhoun on 02-22-2025 WBC (Bld) [#/Vol] 7.0 10*3/uL 4.4-11.0 [facility] CBC W/Diff, Automatedon 09-23 Absolute Lymph 1.99 X10 3/uL Normal 0.83-4.51 [facility] Comment on above: Performed By: #### L 509.3000, L100.0100 #### [facility] [address] [facility] [place], [address] Absolute Neut 4.1 X10 3/uL Normal 2.0-7.7 [facility] Comment on above: Performed By: #### L 509.3000, L100.0100 #### [facility] [address] [place], [address] Basophils/100 WBC (Bld) 0.4 % Normal 0-1 [facility] Comment on above: Performed By: #### L 509.3000, L100.0100 #### [facility] [address] [place], [address] Eosinophils/100 WBC (Bld) 1.9 % Normal 0-5 [facility] Comment on above: Performed By: #### L 509.3000, L100.0100 #### [facility] [address] [place], [address] Erythrocyte distribution width (RBC) [Ratio] 11.7 % Normal 11.6-14.6 [facility] Comment on above: Performed By: #### L 509.3000, L100.0100 #### [facility] [address] [place], [address] Hematocrit (Bld) [Volume fraction] 50.1 % Normal 40-54 [facility] Comment on above: Performed By: #### L 509.3000, L100.0100 #### [facility] [address] [place], [address] Hemoglobin (Bld) [Mass/Vol] 16.1 g/dL Normal 13.0-16.5 [facility] Comment on above: Performed By: #### L 509.3000, L100.0100 #### [facility] [address] [place], [address] IG% 0.300 Normal 0.0-0.9 [facility] Comment on above: Result Comment: IG% - Immature Granulocytes (promyelocytes, myelocytes and metamyelocytes) > 1% indicates that a LEFT SHIFT is Present. Performed By: #### L 509.3000, L100.0100 #### [facility] [address] [place], [address] Lymphocytes/100 WBC (Bld) 29.6 % Normal 19-41 [facility] Comment on above: Performed By: #### L 509.3000, L100.0100 #### [facility] [address] [place], [address] MCH (RBC) [Entitic mass] 30.4 pg Normal 27.0-32.0 [facility] Comment on above: Performed By: #### L 509.3000, L100.0100 #### [facility] [address] [place], [address] MCHC (RBC) [Mass/Vol] 32.1 g/dL Normal 32-36 [facility] Comment on above: Performed By: #### L 509.3000, L100.0100 #### [facility] [address] [place], [address] MCV (RBC) [Entitic vol] 94.7 fL High 80-94 [facility] Comment on above: Performed By: #### L 509.3000, L100.0100 #### [facility] [address] [place], [address] Monocytes/100 WBC (Bld) 7.4 % Normal 0-10 [facility] Comment on above: Performed By: #### L 509.3000, L100.0100 #### [facility] [address] [place], [address] Neutrophils/100 WBC (Bld) 60.4 % Normal 47-70 [facility] Comment on above: Performed By: #### L 509.3000, L100.0100 #### [facility] [address] [place], [address] Nucleated RBC (Bld) [#/Vol] 0 10*3/uL Normal 0-5 [facility] Comment on above: Performed By: #### L 509.3000, L100.0100 #### [facility] [address] [place], [address] Platelet mean volume (Bld) [Entitic vol] 10.6 fL Normal 6.2-12.0 [facility] Comment on above: Performed By: #### L 509.3000, L100.0100 #### [facility] [address] [place], [address] Platelets (Bld) [#/Vol] 232 10*3/uL Normal 150-450 [facility] Comment on above: Performed By: #### L 509.3000, L100.0100 #### [facility] [address] [place], [address] RBC (Bld) [#/Vol] 5.29 10*6/uL Normal 4.6-6.2 [facility] Comment on above: Performed By: #### L 509.3000, L100.0100 #### [facility] [address] [place], [address] RDW SD 40.9 fl Normal 35.1-43.9 [facility] Comment on above: Performed By: #### L 509.3000, L100.0100 #### [facility] [address] [place], [address] WBC (Bld) [#/Vol] 6.7 10*3/uL Normal 4.4-11.0 [facility] Comment on above: Performed By: #### L 509.3000, L100.0100 #### [facility] [address] [place], [address] Testosterone, Serum Totalon 10-18-2024 Testosterone [Mass/Vol] 345.19 ng/dL Normal [facility] Comment on above: Result Comment: CENT RAL 90% REFERENCE RANGES MALE AGE <50 197.44 - 669.58 ng/dL MALE AGE > or = 50 187.72 - 684.19 ng/dL FEMALE AGE <50 8.38 - 35.01 ng/dL FEMALE AGE > or = 50 <7.00 - 35.92 ng/dL Effective as of 04/17/21 Performed By: #### L 509.3000, L100.0100 #### [facility] [address] [place], [address] CBC-Complete Blood Cnt No Di ffon 07-19-2024 Erythrocyte distribution width (RBC) [Ratio] 12.1 % Normal 11.6-14.6 [facility] Comment on above: Performed By: #### L 100.0500, L509.3000 #### [facility] [address] [place], [address] Hematocrit (Bld) [Volume fraction] 51.4 % Normal 40-54 [facility] Comment on above: Performed By: #### L 100.0500, L509.3000 #### [facility] [address] [place], [address] Hemoglobin (Bld) [Mass/Vol] 17.4 g/dL High 13.0-16.5 [facility] Comment on above: Performed By: #### L 100.0500, L509.3000 #### [facility] [address] [place], [address] MCH (RBC) [Entitic mass] 31.4 pg Normal 27.0-32.0 [facility] Comment on above: Performed By: #### L 100.0500, L509.3000 #### [facility] [address] [place], [address] MCHC (RBC) [Mass/Vol] 33.9 g/dL Normal 32-36 [facility] Comment on above: Performed By: #### L 100.0500, L509.3000 #### [facility] [address] [place], [address] MCV (RBC) [Entitic vol] 92.6 fL Normal 80-94 [facility] Comment on above: Performed By: #### L 100.0500, L509.3000 #### [facility] [address] [place], [address] Platelet mean volume (Bld) [Entitic vol] 10.6 fL Normal 6.2-12.0 [facility] Comment on above: Performed By: #### L 100.0500, L509.3000 #### [facility] [address] [place], [address] Platelets (Bld) [#/Vol] 221 10*3/uL Normal 150-450 [facility] Comment on above: Performed By: #### L 100.0500, L509.3000 #### [facility] [address] [place], [address] RBC (Bld) [#/Vol] 5.55 10*6/uL Normal 4.6-6.2 [facility] Comment on above: Performed By: #### L 100.0500, L509.3000 #### [facility] [address] [place], [address] RDW SD 42.0 fl Normal 35.1-43.9 [facility] Comment on above: Performed By: #### L 100.0500, L509.3000 #### [facility] [address] [place], [address] WBC (Bld) [#/Vol] 6.9 10*3/uL Normal 4.4-11.0 [facility] Comment on above: Performed By: #### L 100.0500, L509.3000 #### [facility] [address] [place], [address] Testosterone, Serum Totalon 07-19-2024 Testosterone [Mass/Vol] 396.76 ng/dL Normal [facility] Comment on above: Result Comment: CENT RAL 90% REFERENCE RANGES MALE AGE <50 197.44 - 669.58 ng/dL MALE AGE > or = 50 187.72 - 684.19 ng/dL FEMALE AGE <50 8.38 - 35.01 ng/dL FEMALE AGE > or = 50 <7.00 - 35.92 ng/dL Effective as of 04/17/21 Performed By: #### L 100.0500, L509.3000 #### [facility] [address] [place], [address] Absolute lymphocyte countOrd ered By: Keny Calhoun on 01-14-2024 Lymphocytes Auto (Unsp spec) [#/Vol] 2.40 10*3/uL 0.83-4.51 [facility] Automated lymphocyte count a s percentage of total leukocytesOrdered By: Keny Calhoun on 01-14-2024 Lymphocytes/100 WBC Auto (Unsp spec) 40.7 % 19-41 [facility] Basophil percentageOrdered B y: Keny Calhoun on 01-14-2024 Basophils/100 WBC (Bld) 0.7 % 0-1 [facility] Eosinophils/100 WBC (Bld) 3.1 % 0-5 [facility] Hemoglobin (Bld) [Mass/Vol] 16.4 g/dL 13.0-16.5 [facility] Monocytes/100 WBC (Bld) 5.4 % 0-10 [facility] Neutrophils (Bld) [#/Vol] 2.9 10*3/uL 2.0-7.7 [facility] Neutrophils/100 WBC (Bld) 49.8 % 47-70 [facility] Testosterone [Mass/Vol] 86.78 ng/dL [facility] Comment on above: CENTRAL 90% REFERENC E RANGES MALE AGE <50 197.44 - 669.58 ng/dL MALE AGE > or = 50 187.72 - 684.19 ng/dL FEMALE AGE <50 8.38 - 35.01 ng/dL FEMALE AGE > or = 50 <7.00 - 35.92 ng/dL Effective as of 04/17/21 WBC (Bld) [#/Vol] 5.9 10*3/uL 4.4-11.0 [facility] Determination of erythrocyte mean corpuscular volume (MCV)Ordered By: Keny Calhoun on 01-14-2024 MCV (RBC) [Entitic vol] 93.2 fL 80-94 [facility] Erythrocyte distribution wid th ratioOrdered By: Keny Calhoun on 01-14-2024 Erythrocyte distribution width (RBC) [Ratio] 11.4 % 11.6-14.6 [facility] Erythrocyte distribution wid th standard deviationOrdered By: Keny Calhoun on 01-14-2024 Erythrocyte distribution width (RBC) [Entitic vol] 39.2 fL 35.1-43.9 [facility] Hematocrit Auto (Bld) [Volum e fraction]Ordered By: Keny Calhoun on 01-14-2024 Hematocrit (Bld) [Volume fraction] 48.0 % 40-54 [facility] Immature granulocytes/100 WB C Auto (Bld)Ordered By: Keny Calhoun on 01-14-2024 Immature granulocytes/100 WBC (Bld) 0.300 % 0.0-0.9 [facility] Comment on above: IG% - Immature Granu locytes (promyelocytes, myelocytes and metamyelocytes) > 1% indicates that a LEFT SHIFT is Present. Laboratory - Hematology and Cell countsOrdered By: Keny Calhoun on 01-14-2024 MCH (RBC) [Entitic mass] 31.8 pg 27.0-32.0 [facility] MCHC (RBC) [Mass/Vol] 34.2 g/dL 32-36 [facility] Nucleated RBC/100 WBC (Bld) [Ratio] 0 % 0-5 [facility] Platelet mean volume (Bld) [Entitic vol] 10.4 fL 6.2-12.0 [facility] Platelets (Bld) [#/Vol] 222 10*3/uL 150-450 [facility] RBC Auto (Bld) [#/Vol]Ordere d By: Keny Calhoun on 01-14-2024 RBC (Bld) [#/Vol] 5.15 10*6/uL 4.6-6.2 [facility] Absolute lymphocyte countOrd ered By: Keny Calhoun on 09-10-2023 Lymphocytes Auto (Unsp spec) [#/Vol] 2.53 10*3/uL 0.83-4.51 [facility] Basophil percentageOrdered B y: Keny Calhoun on 09-10-2023 Basophils/100 WBC (Bld) 0.6 % 0-1 [facility] Eosinophils/100 WBC (Bld) 4.5 % 0-5 [facility] Neutrophils (Bld) [#/Vol] 3.4 10*3/uL 2.0-7.7 [facility] Neutrophils/100 WBC (Bld) 50.6 % 47-70 [facility] WBC (Bld) [#/Vol] 6.7 10*3/uL 4.4-11.0 [facility] Blood erythrocytes count (nu mber/volume)Ordered By: Keny Calhoun on 09-10-2023 RBC (Bld) [#/Vol] 5.38 10*6/uL 4.6-6.2 [facility] Blood hemoglobin measurement (mass/volume)Ordered By: Keny Calhoun on 09-10-2023 Hemoglobin (Bld) [Mass/Vol] 16.8 g/dL 13.0-16.5 [facility] Blood lymphocytes/100 leukoc ytesOrdered By: Keny Calhoun on 09-10-2023 Lymphocytes/100 WBC (Bld) 37.8 % 19-41 [facility] Blood monocytes/100 leukocyt esOrdered By: Keny Calhoun on 09-10-2023 Monocytes/100 WBC (Bld) 6.1 % 0-10 [facility] Blood platelet mean volumeOr dered By: Keny Calhoun on 09-10-2023 Platelet mean volume (Bld) [Entitic vol] 10.5 fL 6.2-12.0 [facility] Determination of erythrocyte mean corpuscular volume (MCV)Ordered By: Keny Calhoun on 09-10-2023 MCV (RBC) [Entitic vol] 92.4 fL 80-94 [facility] Hematocrit Auto (Bld) [Volum e fraction]Ordered By: Keny Calhoun on 09-10-2023 Hematocrit (Bld) [Volume fraction] 49.7 % 40-54 [facility] Laboratory - Hematology and Cell countsOrdered By: Keny Calhoun on 09-10-2023 Erythrocyte distribution width (RBC) [Entitic vol] 39.6 fL 35.1-43.9 [facility] Erythrocyte distribution width (RBC) [Ratio] 11.7 % 11.6-14.6 [facility] Immature granulocytes/100 WBC (Bld) 0.400 % 0.0-0.9 [facility] Comment on above: IG% - Immature Granu locytes (promyelocytes, myelocytes and metamyelocytes) > 1% indicates that a LEFT SHIFT is Present. MCH (RBC) [Entitic mass] 31.2 pg 27.0-32.0 [facility] Nucleated RBC/100 WBC (Bld) [Ratio] 0 % 0-5 [facility] MCHC Auto (RBC) [Mass/Vol]Or dered By: Keny Calhoun on 09-10-2023 MCHC (RBC) [Mass/Vol] 33.8 g/dL 32-36 [facility] Platelets bldOrdered By: Kristy Calhoun on 09-10-2023 Platelets (Bld) [#/Vol] 246 10*3/uL 150-450 [facility] Absolute lymphocyte countOrd ered By: Keny Calhoun on 08-11-2023 Lymphocytes Auto (Unsp spec) [#/Vol] 2.75 10*3/uL 0.83-4.51 [facility] Basophil percentageOrdered B y: Keny Calhoun on 08-11-2023 Basophils/100 WBC (Bld) 0.7 % 0-1 [facility] Eosinophils/100 WBC (Bld) 4.7 % 0-5 [facility] Neutrophils (Bld) [#/Vol] 3.2 10*3/uL 2.0-7.7 [facility] Neutrophils/100 WBC (Bld) 46.1 % 47-70 [facility] WBC (Bld) [#/Vol] 6.8 10*3/uL 4.4-11.0 [facility] Blood erythrocytes count (nu mber/volume)Ordered By: Keny Calhoun on 08-11-2023 RBC (Bld) [#/Vol] 5.78 10*6/uL 4.6-6.2 [facility] Blood hemoglobin measurement (mass/volume)Ordered By: Keny Calhoun on 08-11-2023 Hemoglobin (Bld) [Mass/Vol] 18.2 g/dL 13.0-16.5 [facility] Blood lymphocytes/100 leukoc ytesOrdered By: Keny Calhoun on 08-11-2023 Lymphocytes/100 WBC (Bld) 40.2 % 19-41 [facility] Blood monocytes/100 leukocyt esOrdered By: Keny Calhoun on 08-11-2023 Monocytes/100 WBC (Bld) 8.0 % 0-10 [facility] Blood platelet mean volumeOr dered By: Keny Calhoun on 08-11-2023 Platelet mean volume (Bld) [Entitic vol] 10.6 fL 6.2-12.0 [facility] Determination of erythrocyte mean corpuscular volume (MCV)Ordered By: Keny Calhoun on 08-11-2023 MCV (RBC) [Entitic vol] 94.3 fL 80-94 [facility] Hematocrit Auto (Bld) [Volum e fraction]Ordered By: Keny Calhoun on 08-11-2023 Hematocrit (Bld) [Volume fraction] 54.5 % 40-54 [facility] Laboratory - Hematology and Cell countsOrdered By: Keny Calhoun on 08-11-2023 Erythrocyte distribution width (RBC) [Entitic vol] 39.3 fL 35.1-43.9 [facility] Erythrocyte distribution width (RBC) [Ratio] 11.4 % 11.6-14.6 [facility] Immature granulocytes/100 WBC (Bld) 0.300 % 0.0-0.9 [facility] Comment on above: IG% - Immature Granu locytes (promyelocytes, myelocytes and metamyelocytes) > 1% indicates that a LEFT SHIFT is Present. MCH (RBC) [Entitic mass] 31.5 pg 27.0-32.0 [facility] Nucleated RBC/100 WBC (Bld) [Ratio] 0 % 0-5 [facility] MCHC Auto (RBC) [Mass/Vol]Or dered By: Keny Calhoun on 08-11-2023 MCHC (RBC) [Mass/Vol] 33.4 g/dL 32-36 [facility] Platelets bldOrdered By: Kristy Calhoun on 08-11-2023 Platelets (Bld) [#/Vol] 239 10*3/uL 150-450 [facility] Review by pathologistOrdered By: Keny Calhoun on 08-11-2023 Pathologist review Riley (Unsp spec) [Interp] Reviewed [facility] Absolute lymphocyte countOrd ered By: Keny Calhoun on 07-09-2023 Lymphocytes Auto (Unsp spec) [#/Vol] 2.26 10*3/uL 0.83-4.51 [facility] Basophil percentageOrdered B y: Keny Calhoun on 07-09-2023 Basophils/100 WBC (Bld) 1.2 % 0-1 [facility] Eosinophils/100 WBC (Bld) 6.3 % 0-5 [facility] Neutrophils (Bld) [#/Vol] 4.6 10*3/uL 2.0-7.7 [facility] Neutrophils/100 WBC (Bld) 55.9 % 47-70 [facility] Testosterone [Mass/Vol] 559.37 ng/dL [facility] Comment on above: CENTRAL 90% REFERENC E RANGES MALE AGE <50 197.44 - 669.58 ng/dL MALE AGE > or = 50 187.72 - 684.19 ng/dL FEMALE AGE <50 8.38 - 35.01 ng/dL FEMALE AGE > or = 50 <7.00 - 35.92 ng/dL Effective as of 04/17/21 WBC (Bld) [#/Vol] 8.2 10*3/uL 4.4-11.0 [facility] Blood erythrocytes count (nu mber/volume)Ordered By: Keny Calhoun on 07-09-2023 RBC (Bld) [#/Vol] 6.03 10*6/uL 4.6-6.2 [facility] Blood hemoglobin measurement (mass/volume)Ordered By: Keny Calhoun on 07-09-2023 Hemoglobin (Bld) [Mass/Vol] 18.7 g/dL 13.0-16.5 [facility] Blood lymphocytes/100 leukoc ytesOrdered By: Keny Calhoun on 07-09-2023 Lymphocytes/100 WBC (Bld) 27.5 % 19-41 [facility] Blood monocytes/100 leukocyt esOrdered By: Keny Calhoun on 07-09-2023 Monocytes/100 WBC (Bld) 8.5 % 0-10 [facility] Blood platelet mean volumeOr dered By: Keny Calhoun on 07-09-2023 Platelet mean volume (Bld) [Entitic vol] 10.6 fL 6.2-12.0 [facility] Determination of erythrocyte mean corpuscular volume (MCV)Ordered By: Keny Calhoun on 07-09-2023 MCV (RBC) [Entitic vol] 95.7 fL 80-94 [facility] Hematocrit Auto (Bld) [Volum e fraction]Ordered By: Keny Calhoun on 07-09-2023 Hematocrit (Bld) [Volume fraction] 57.7 % 40-54 [facility] Laboratory - Hematology and Cell countsOrdered By: Keny Calhoun on 07-09-2023 Erythrocyte distribution width (RBC) [Entitic vol] 41.9 fL 35.1-43.9 [facility] Erythrocyte distribution width (RBC) [Ratio] 11.9 % 11.6-14.6 [facility] Immature granulocytes/100 WBC (Bld) 0.600 % 0.0-0.9 [facility] Comment on above: IG% - Immature Granu locytes (promyelocytes, myelocytes and metamyelocytes) > 1% indicates that a LEFT SHIFT is Present. MCH (RBC) [Entitic mass] 31.0 pg 27.0-32.0 [facility] Nucleated RBC/100 WBC (Bld) [Ratio] 0 % 0-5 [facility] MCHC Auto (RBC) [Mass/Vol]Or dered By: Keny Calhoun on 07-09-2023 MCHC (RBC) [Mass/Vol] 32.4 g/dL 32-36 [facility] No Panel InformationOrdered By: Keny Calhoun on 07-09-2023 Prostate Specific Antigen Total 0.63 ng/mL 0.0-4.0 [facility] Comment on above: This test was perfor med using the TPSA assay method for the[employer] chemistry system. Values obtained with differentassay methods cannot be used interchangably.When changing PSA assays in the course of monitoring apatient, additional sequential testing should be carriedout to confirm baseline values. Platelets bldOrdered By: Kristy Calhoun on 07-09-2023 Platelets (Bld) [#/Vol] 245 10*3/uL 150-450 [facility] Review by pathologistOrdered By: Keny Calhoun on 07-09-2023 Pathologist review Riley (Unsp spec) [Interp] Reviewed [facility] Comment on above: Previous reported re sult: Lucinda douglas Edited by: RGOTERESO on 07/11/23:1047PolycythemiaClinical correlation necessary.Mandeep Pinto M.D. 07/11/23 AMENDED REPORT 07/11/23 1047 PATH REV previously reported as: Lucinda douglas Basophil percentageOrdered B y: Dr. Calhoun on 12-23-2022 Testosterone [Mass/Vol] 346.36 ng/dL [facility] Comment on above: CENTRAL 90% REFERENC E RANGES MALE AGE <50 197.44 - 669.58 ng/dL MALE AGE > or = 50 187.72 - 684.19 ng/dL FEMALE AGE <50 8.38 - 35.01 ng/dL FEMALE AGE > or = 50 <7.00 - 35.92 ng/dL Effective as of 04/17/21 Basophil percentageon 2021 Testosterone [Mass/Vol] 383.98 ng/dL [facility] Work Phone: Comment on above: CENTRAL 90% REFERENC E RANGES MALE AGE <50 197.44 - 669.58 ng/dL MALE AGE > or = 50 187.72 - 684.19 ng/dL FEMALE AGE <50 8.38 - 35.01 ng/dL FEMALE AGE > or = 50 <7.00 - 35.92 ng/dL Effective as of 04/17/21 No Panel Informationon 05-23 Thyroid Stimulating Hormone (TSH) 2.45 uIU/mL 0.358-3.74 [facility] Work Phone: Basophil percentageon 2021 Bilirubin [Mass/Vol] 0.50 mg/dL 0.20-1.00 [facility] Work Phone: Comment on above: For patients on eltr ombopag therapy, use of Dimension [place] TBIL is not recommended. Cholesterol [Mass/Vol] 211 mg/dL <200 [facility] Work Phone: Comment on above: <200 mg/dL Desirable 200-240 mg/dL Borderline >240 mg/dL High Risk Protein [Mass/Vol] 7.6 g/dL 6.4-8.2 [facility] Work Phone: Triglyceride [Mass/Vol] 234 mg/dL <199 [facility] Work Phone: Comment on above: The drugs N-Acetylcy steine and Metamizole may falsely depress this assay.Serum Triglycerides Reference Interval Normal <150 mg/dL Borderline high 150 - 199 mg/dL High 200 - 499 mg/dL Very High > or = 500 mg/dL Direct bilirubinon Bilirubin.direct [Mass/Vol] 0.17 mg/dL 0.00-0.30 [facility] Work Phone: Laboratory - Chemistry and C hemistry - challengeon 03-08-2022 ALP [Catalytic activity/Vol] 72 U/L 45-117 [facility] Work Phone: ALT [Catalytic activity/Vol] 44 U/L 16-61 [facility] Work Phone: Globulin (S) [Mass/Vol] 3.7 g/dL 2.2-4.2 [facility] Work Phone: Serum or plasma albumin margarita urement (mass/volume)on 03-08-2022 Albumin [Mass/Vol] 3.9 g/dL 3.2-5.0 [facility] Work Phone: Serum or plasma cholesterol in HDL measurement (mass/volume)on 03-08-2022 Cholesterol in HDL [Mass/Vol] 36 mg/dL >40 [facility] Work Phone: Comment on above: The drugs N-Acetylcy steine and Metamizole may falsely depress this assay. Reference Range HDL <40 mg/dL Low HDL Cholesterol HDL >or= 60 mg/dL High HDL Cholesterol Serum or plasma cholesterol in VLDL measurement (mass/volume)on 03-08-2022 Cholesterol in VLDL [Mass/Vol] 47 mg/dL 5-40 [facility] Work Phone: Serum or plasma low density lipoprotein (LDL) cholesterol measurement (mass/volume)on 03-08-2022 Cholesterol in LDL [Mass/Vol] 128 mg/dL 0-130 [facility] Work Phone: Thin prep Papanicolaou smear with manual screeningon 03-08-2022 Thin prep Papanicolaou smear with manual screening 30 U/L 15-37 [facility] Work Phone: Comment on above: Slight Hemolysis, Re sult may be falsely increased. Basophil percentageon 2021 Testosterone [Mass/Vol] 462.36 ng/dL [facility] Work Phone: Comment on above: CENTRAL 90% [...] apnea; inferior turbinate hypertrophy, septal deviation [facility] CONVERTED ELECTRONIC SIGNATURE NBA RAMIREZ M.D., PATHOLOGIST (Electronic signature on file) Final Signed Out: 08/09/2008 16:29 [facility] CONVERTED FINAL DIAGNOSIS FINAL DIAGNOSI S: TONSILS AND UVULA, EXCISION - TWO TONSILS WITH REACTIVE LYMPHOID HYPERPLASIA AND FOCAL ACUTE INFLAMMATION. UVULA AND SOFT PALATE TISSUE WITH MINOR SALIVARY GLANDS AND EDEMATOUS CHANGES. SPECIMEN: TONSIL(S) [facility] CONVERTED GROSS DESCRIPTION GROSS DESCRIPTION: Tonsils Received [...] 3. [id number]:hlm MICROSCOPIC DESCRIPTION: Slides reviewed [facility] CONVERTED ORDERING PROVIDER Ordering Provider: RICKY AGUIRRE [facility] Encounters Encounter Date Encounter Type Care Provider Facility Start: 02-26-2025 Encounter for genera l adult medical examination without abnormal findings Keny Calhoun [facility] Start: 02-22-2025 End: 02-22-[address] Keny Calhoun MD Work Phone: [facility] Work Phone: Start: 02-22-2025 End: 02-22-[address] Keny Calhoun MD [facility] Start: 02-22-2025 End: 02-22-[facility] Start: 10-18-2024 End: 10-18-2024 [facility] Start: 07-19-2024 End: 07-19-2024 [facility] Start: 01-14-2024 End: 01-14-2024 ambulatory [facility] Work Phone: Start: 01-14-2024 End: 01-14-2024 Patient encounter procedure [facility] Start: 09-10-2023 End: 09-10-2023 ambulatory [facility] Work Phone: Start: 09-10-2023 End: 09-10-2023 Patient encounter procedure [facility] Start: 08-11-2023 End: 08-11-2023 ambulatory [facility] Work Phone: Start: 08-11-2023 End: 08-11-2023 Patient encounter procedure [facility] Start: 07-09-2023 End: 07-09-2023 ambulatory [facility] Work Phone: Start: 07-09-2023 End: 07-09-2023 Patient encounter procedure [facility] Start: 12-23-2022 End: 12-23-2022 ambulatory [facility] Work Phone: Start: 12-23-2022 End: 12-23-2022 Patient encounter procedure [facility] Start: 05-23-2022 End: 05-23-2022 ambulatory [facility] Work Phone: Start: 05-23-2022 End: 05-23-2022 Patient encounter procedure [facility] Start: 03-08-2022 End: 03-08-2022 Patient encounter procedure [facility] Start: 02-12-2022 End: 02-12-2022 Patient encounter procedure [facility] Start: 10-24-2021 End: 10-24-2021 Patient encounter procedure [facility] [place] Start: 08-08-2008 End: 08-08-2008 Patient encounter procedure Ricky Amanda Timothy Work Phone: [facility] Start: 08-08-2008 Results Only Ricky ladd Work Phone: [facility] Procedures Date Procedure Procedure Detail Performing Clinician Start: 10-24-2021 Plain chest X-ray Start: 08-08-2008 CONVERTED SURGICAL PATHOLOGY Ricky Aguirre Work Phone: Payers Date Payer Category Payer Self-pay [id number] 2024 Unknown [id number] 2008 Unknown [id number] Unknown [id number] Unknown [id number] Unknown [id number] Social History Date Type Detail [facility] Sex Assigned At Not on file [facility] Start: 01-09-2021 End: 01-09-2021 Tobacco smoking status [facility]IS Unknown if ever smoked [facility] Start: 07-20-2016 Occasional [facility] Start: 07-20-2016 None [facility] Start: 1985 Sex Assigned At Male [facility] Start: 01-09-2021 [facility] Evaluation note Note Date & Type Note Facility Evaluation note No assessment information availa ble [facility] Work Phone: Reason for referral (narrative) Note Date & Type Note Facility Reason for referral (narrative) No reason for referral information available [facility] Work Phone: Chief Complaint and Reason for Visit Chief Complaint PERISTENT COUGH Chief Complaint SKIN Advance Directives No Advanced Directives Records Found Advance Directive Response Recorded Date/ Time Advance Directives No July 20, 2016 10:34pm Living Will No July 20 10:34pm Power of Gathering Machine Setter No July 20, 2016 10:34pm Advance Directive Response Recorded Date/ Time Advance Directives No July 20, 2016 9:34pm Living Will No July 20 9:34pm Power of Gathering Machine Setter No July 20, 2016 9:34pm Advance Directive [...] prosecute any alcohol or drug abuse patient.[facility] Goals (unrecognized section and content) Goals may [...] 22, 2025 End: February 22, 2025 Dr. Keyn Calhoun MD Referring Provider Active Start: February 22, 2025 End: February 22, 2025 (unrecognized sect ion and content) No Status Records Found INFORMATION SOURCE (unrecogn ized section and content) DATE CREATED AUTHOR 02/27/2025 [facility] FOR RECORDS PERTAINING TO PATIENTS WHO ARE [...] BE BASED ON THE PRIMARY CLINICAL RECORDS. [employer] provides no warranty or guarantee of the accuracy or completeness of information in this document.
[2025-06-24 10:36] LABS: Hematocrit 52.3 % (40-54); Hemoglobin 17.0 g/dL (13.0-16.5); Immature Granulocytes Count 0.020 X10^3/uL (0.0-0.0); Mean Corp Hgb Conc 32.5 g/dL (32-36); Mean Corpuscular Volume 94.2 fL (80-94); Mean Platelet Vol. 10.3 fl (6.2-12.0); NRBC Flagged by Analyzer 0 % (0-5); Platelet Count 213 K/mm3 (150-450); RBC Distribution Width CV 11.5 % (11.6-14.6); RBC Distribution Width SD 40.1 fl (35.1-43.9); Red Blood Count 5.55 M/mm3 (4.6-6.2); White Blood Count 6.8 K/mm3 (4.4-11.0)
[2025-06-24 13:03] LABS: AST(SGOT) 28 U/L (<=37); Alanine Aminotransfer ALT/SGPT 31 U/L (<=46); Albumin, Serum 4.5 g/dL (3.5-5.0); Alkaline Phosphatase 66 U/L (40-129); Anion Gap 11 (5-15); BUN 14 mg/dL (4-19); BUN/Creat Ratio 13.1 RATIO (10-20); Calcium,Total 9.6 mg/dL (7.6-11.0); Carbon Dioxide 26.7 mmol/L (21.0-32.0); Chloride 101 mmol/L (98-108); Cholesterol 140 mg/dL (<=200); Globulin 2.9 g/dL (2.2-4.2); Glucose 88 mg/dL (70-99); Low Density Lipoprotein Calc. 92 mg/dL; Potassium 4.4 mmol/L (3.3-5.1); Triglycerides 89 mg/dL; Very Low Density Lipoprotein 18 mg/dL (5-40); cholesterol:hdl ratio screen 4.70
== END | disposition home or self-care (01) ==
LOC: MFPLAB 09:39
PROVIDERS: PCP Family Medicine; Visit Provider Family Medicine
DX: E29.1 Testicular hypofunction (principal); E78.00 Pure hypercholesterolemia, unspecified
CPT/HCPCS: 36415; 80053; 80061; 84403; 85025